=== PATIENT | male | born 1940 | race Two or more races ===

== ENCOUNTER 2021-09-28 09:59 | Inpatient (IN) | payer MEDICARE, OTHER ==
[~2021-09-28] VITALS: Ht 182.9 cm; Wt 119.3 kg
--- NOTE | 2021-09-28 09:59 | NUR ---
BIBRA 78 FROM HOME C/O GEN WEAKNESS STARTED YESTERDAY BG 128. PER EMS VIRK WAS REPLACED YESTERDAY NO URINE OUTPUT. TO ER BED 8, HOOKED TO MONITOR, CHANGED TO HOSP GOWN, WARM BLANKET PROVIDED. PATIENT AAO x 2. BREATHING EVEN AND UNLABORED. DR HOLLIS AT BEDSIDE
--- NOTE | 2021-09-28 10:21 | NUR ---
WHEELED OUT VIA RNEY FOR CT SCAN
[2021-09-28] MEDS ORDERED: IV NS 0.9% 500 ML BAG IV ONE (10:30)
[2021-09-28] MEDS ORDERED: CEFTRIAXONE 1GM BAG (ER ONLY) 1 GM/50 ML PIGGYBACK IV ONE (10:30)
--- NOTE | 2021-09-28 10:32 | NUR ---
INSERTED VIRK CATHETER, NO OUTPUT. MADE AWARE
[2021-09-28] MEDS ORDERED: CEFTRIAXONE 1GM BAG (ER ONLY) 50 ML IV ONE (10:35)
[2021-09-28 11:00] LABS: BASOPHILS # (AUTO) 0.1 K/uL (0.0-0.2); BASOPHILS % (AUTO) 0.6 % (0.0-2.0); EOSINOPHILS % (AUTO) 0.9 % (0.0-6.0); HEMATOCRIT 28 % (39-51); HEMOGLOBIN 9.1 g/dL (13.5-17.5); LYMPHOCYTES # (AUTO) 1.8 K/uL (0.8-4.8); LYMPHOCYTES % (AUTO) 20.4 % (20.0-44.0); MEAN CORPUSCULAR HGB CONC 32 g/dl (31.0-36.0); MEAN CORPUSCULAR VOLUME 91 fL (80-96); MONOCYTES # (AUTO) 0.6 K/uL (0.1-1.30); MONOCYTES % (AUTO) 6.7 % (2.0-12.0); NEUTROPHILS # (AUTO) 6.4 K/uL (1.8-8.9); NEUTROPHILS % (AUTO) 71.4 % (43.0-81.0); PLATELET COUNT (AUTO) 222 K/uL (150-450); RED BLOOD CELL COUNT(AUTO) 3.12 MIL/uL (4.5-6.0)
[2021-09-28] MEDS ORDERED: IV NS 0.9% 1,000 ML IV ONE (11:00)
[2021-09-28 11:29] LABS: ALKALINE PHOSPHATASE 48 U/L (46-116); ASPARTATE AMINOTRANSFERASE 16 U/L (15-37); BILIRUBIN,DIRECT 0.1 mg/dL (0.0-0.2); BILIRUBIN,TOTAL 0.5 mg/dL (0.2-1.0); CALCIUM, SERUM 8.9 mg/dL (8.5-10.1); CARBON DIOXIDE 21 mmol/L (21-32); CHLORIDE 91 mmol/L (98-107); CREATININE 3.7 mg/dL (0.6-1.3); GLUCOSE 97 mg/dL (74-106); TOTAL PROTEIN, SERUM 5.4 g/dL (6.4-8.2); UREA NITROGEN, BLOOD 43 mg/dL (7-18)
--- NOTE | 2021-09-28 11:33 | NUR ---
[facility] [phone] PRIMARY MD: KANDI SZYMANSKI [phone] ONCOLOGIST: DR KRISHNA [phone]
[2021-09-28 11:50] LABS: ALANINE AMINOTRANSFERASE 7 U/L (12-78)
[2021-09-28 11:54] LABS: SODIUM SERUM 120 mmol/L (136-145)
[2021-09-28] MEDS ORDERED: DOXYCYCLINE 100 MG in IV D5W 100 ML IV ONE (12:00)
[2021-09-28 12:31] LABS: THYROID STIMULATING HORMONE 8.392 uIU/mL (0.358-3.74)
--- NOTE | 2021-09-28 14:30 | NUR ---
RAPID COVID DONE AND SENT TO LAB
--- NOTE | 2021-09-28 14:36 | NUR ---
URINE SAMPLE COLLECTED FROM VIRK CATHETER. SENT TO LAB.
[2021-09-28] MEDS ORDERED: ZOLPIDEM TARTRATE 5 MG TABLET PO PRN (15:30)
[2021-09-28] MEDS ORDERED: Z GUARD REMEDY 4 OZ OINT TP PRN (15:30)
[2021-09-28] MEDS ORDERED: HYDROCODONE/APAP 5/325MG TABLET PO PRN (15:30)
[2021-09-28] MEDS ORDERED: MAG HYDROX/AL HYDROX/SIMETH 30 ML UDC PO PRN (15:30)
[2021-09-28] MEDS ORDERED: MAGNESIUM HYDROXIDE 30 ML UDC PO PRN (15:30)
[2021-09-28 15:56] LABS: COLOR,URINE RED (YELLOW); RBC,URINE TOO NUMEROUS TO COUN /HPF (0-2)
[2021-09-28 15:57] LABS: BACTERIA,URINE 2+ /HPF (None Seen); SQUAMOUS EPITHELIAL CELL,UR 0-2 /HPF (None Seen); WBC,URINE 21-50 /HPF (0-3)
--- NOTE | 2021-09-28 16:00 | NUR ---
SHERWIN PARKS AT BEDSIDE
--- NOTE | 2021-09-28 18:54 | NUR ---
FOLLOWED UP TELE BED FROM WATER METER MECHANIC.
--- NOTE | 2021-09-28 19:00 | NUR ---
BED GIVEN 116-1
--- NOTE | 2021-09-28 19:05 | NUR ---
CALLED FOR REPORT. NURSE NOT AVAILABLE
--- NOTE | 2021-09-28 19:27 | NUR ---
CALLED FOR REPORT. NURSE NOT AVAILABLE
--- NOTE | 2021-09-28 19:36 | NUR ---
REPORT GIVEN TO LENA HICKMAN FOR SHELLEY
--- NOTE | 2021-09-28 20:13 | NUR ---
REPORT GIVEN TO CATIE NAIR RN FOR SHELLEY
[2021-09-28] MEDS ORDERED: HYDR-4077 PO ×2 (20:15→20:30)
[2021-09-28] MEDS ORDERED: CARV12.52 PO (20:30)
[2021-09-28] MEDS ORDERED: GABA-532 PO (20:30)
[2021-09-28] MEDS ORDERED: ALLO300T2 PO (20:30)
[2021-09-28] MEDS ORDERED: LEVO75TA7 PO (20:30)
[2021-09-28 21:00] VITALS: BP 102/54
[2021-09-28] MEDS ORDERED: CEFEPIME 2 GM in IV D5W 100 ML IV ONE (21:00)
--- NOTE | 2021-09-28 21:02 | NUR ---
PT TRANSFERRED TO [place] VIA ACLS PROTOCOL. VSS. ALL BELONGINGS WITH PT.
[2021-09-28] MEDS ORDERED: VANCOMYCIN 1 GM VIAL ONE (21:40)
[2021-09-28] MEDS ORDERED: VANCOMYCIN 2 GM in IV D5W 500 ML IV ONE (22:00)
[2021-09-28] MEDS ORDERED: CEFEPIME 1 GM VIAL ONE (23:27)
[2021-09-29] VITALS (7 sets, daily range): BP systolic 89–122; BP diastolic 44–66
--- NOTE | 2021-09-29 06:30 | NUR ---
CONSUMER ELECTRONICS MERCHANDISER NOTES AWAKE & RESPONSIVE. NOT IN ANY DISTRESS. NO SOB NOTED. DENIES ANY PAIN OR DISCOMFORT AT THIS TIME. ON TELE SR @ 67 WITH IV PATENT & INTACT. AM CARE DONE. MONITORED ACCORDINGLY. CALL LIGHT WITHIN REACH. BED IN LOWEST POSITION. SR UP X 3 WITH BED ALARM ON FOR SAFETY. WILL ENDORSE TO NEXT SHIFT.
[2021-09-29 07:10] LABS: BASOPHILS # (AUTO) 0.1 K/uL (0.0-0.2); BASOPHILS % (AUTO) 0.7 % (0.0-2.0); EOSINOPHILS % (AUTO) 1.7 % (0.0-6.0); HEMATOCRIT 27 % (39-51); LYMPHOCYTES # (AUTO) 1.6 K/uL (0.8-4.8); LYMPHOCYTES % (AUTO) 16.8 % (20.0-44.0); MEAN CORPUSCULAR HGB CONC 33 g/dl (31.0-36.0); MEAN CORPUSCULAR VOLUME 88 fL (80-96); MONOCYTES # (AUTO) 0.6 K/uL (0.1-1.30); MONOCYTES % (AUTO) 6.6 % (2.0-12.0); NEUTROPHILS # (AUTO) 7.1 K/uL (1.8-8.9); NEUTROPHILS % (AUTO) 74.2 % (43.0-81.0); PLATELET COUNT (AUTO) 257 K/uL (150-450); RED BLOOD CELL COUNT(AUTO) 3.09 MIL/uL (4.5-6.0); WHITE BLOOD COUNT (AUTO) 9.6 K/uL (4.3-11.0)
[2021-09-29 07:26] LABS: CALCIUM, SERUM 8.5 mg/dL (8.5-10.1); CARBON DIOXIDE 21 mmol/L (21-32); CHLORIDE 92 mmol/L (98-107); CREATININE 4.4 mg/dL (0.6-1.3); GLUCOSE 105 mg/dL (74-106); MAGNESIUM 2.2 mg/dL (1.8-2.4); PHOSPHORUS 5.9 mg/dL (2.5-4.9); SODIUM SERUM 121 mmol/L (136-145); UREA NITROGEN, BLOOD 42 mg/dL (7-18)
--- NOTE | 2021-09-29 07:30 | NUR ---
COMMUNICATION PROFESSOR OPENING NOTES RECEIVED PATIENT AWAKE & RESPONSIVE. NOT IN ANY DISTRESS. NO SOB NOTED. DENIES ANY PAIN OR DISCOMFORT. PATIENT IS [place] SPEAKING, CAN SPEAK MINIMAL MALAY, IS ABLE TO VERBALIZE NEEDS. IV ACCESS NOTED ON RIGHT HAND AND RIGHT AC BOTH 20G.SAFETY MEASURES IN PLACE. CALL LIGHT WITHIN REACH, BED ALARM ACTIVATED BED IN LOWEST POSITION. SIDE RAILS UP X 2.
[2021-09-29] MEDS: PANTOPRAZOLE 40 MG TABLET.DR PO SCH (08:26)
[2021-09-29] MEDS: IV NS 0.9% 1,000 ML IV PRN (15:33)
--- NOTE | 2021-09-29 19:09 | NUR ---
SLURRY TANK TENDER CLOSING NOTES PATIENT AWAKE & RESPONSIVE. NOT IN ANY DISTRESS. NO SOB NOTED. DENIES ANY PAIN OR DISCOMFORT. PATIENT IS VINCENTIAN SPEAKING, CAN SPEAK MINIMAL [place], IS ABLE TO VERBALIZE NEEDS. IV ACCESS NOTED ON RIGHT HAND AND RIGHT AC BOTH 20G.SAFETY MEASURES IN PLACE. CALL LIGHT WITHIN REACH, BED ALARM ACTIVATED BED IN LOWEST POSITION. SIDE RAILS UP X 2.
--- NOTE | 2021-09-29 19:35 | NUR ---
RN NOTE PT RECEIVED IN BED. PT IS ALERT AND ORIENTED X1-2. CURRENTLY ON 2L OF O2 VIA NC SHOWING NO S/SX OF RESP DISTRESS. BREATHING EVEN AND UNLABORED. ON MANUFACTURING PROJECT MANAGER SHOWING NSR. IV ACCESS NOTED ON RIGHT UPPER ARM PICCLINE, LINE FLUSHED, PATENT, AND INTACT WITH NO SIGNS OF INFILTRATION. 0.9% NS RUNNING AT 75 CC/HR. VIRK CATHETER NOTED DRAINING BLOODY URINE. ALL SAFETY MEASURES IMPLEMENTED. CALL LIGHT WITHIN REACH. BED LOCKED AND IN LOWEST POSITION. HOB ELEVATED. SIDE RAILS UP. WILL CONTINUE TO MONITOR AND ASSESS FOR ANY CHANGES DURING SHIFT.
--- NOTE | 2021-09-29 20:00 | NUR ---
RN NOTE PER FAMILY, PT IS ON G-TUBE FEEDING SPECIFICALLY BEING ON NEPRO. ALSO, PER FAMILY, SHE IS ABLE TO INTAKE VERY SMALL AMOUNTS OF PUREED FOOD. Addendum: 09/30/21 at 0138 by MAURICIO FINNEY RN WRONG ENTRY
[2021-09-29] MEDS: ONDANSETRON HCL/PF 4 MG/2 ML VIAL IVP PRN ×2 (20:17→20:59)
[2021-09-29] MEDS: CEFEPIME 2 GM in IV D5W 100 ML IV SCH (21:56)
[2021-09-30] VITALS: BP 104/53
[2021-09-30 00:01] LABS: CREATININE, URINE 54.3 MG/DL (30.0-125.0)
[2021-09-30 04:00] VITALS: BP 109/48
[2021-09-30] MEDS: IV NS 0.9% 1,000 ML IV PRN (05:53)
--- NOTE | 2021-09-30 06:55 | NUR ---
RN NOTE NO CHANGES IN PT CONDITION DURING SHIFT. CURRENTLY ON 2L OF O2 VIA NC SHOWING NO S/SX OF RESP DISTRESS. BREATHING EVEN AND UNLABORED. ON CODING EDUCATOR SHOWING NSR. IV ACCESS NOTED ON RIGHT UPPER ARM PICCLINE, LINE FLUSHED, PATENT, AND INTACT WITH NO SIGNS OF INFILTRATION. 0.9% NS RUNNING AT 75 CC/HR. ALL DUE MEDS GIVEN ORDERED. PT KEPT CLEAN AND COMFORTABLE. ALL SAFETY MEASURES IMPLEMENTED. CALL LIGHT WITHIN REACH. BED LOCKED AND IN LOWEST POSITION. HOB ELEVATED. SIDE RAILS UP. WILL ENDORSE TO MORNING SHIFT RN FOR SHELLEY.
[2021-09-30 07:06] LABS: BASOPHILS % (AUTO) 0.5 % (0.0-2.0); EOSINOPHILS % (AUTO) 1.7 % (0.0-6.0); HEMATOCRIT 25 % (39-51); HEMOGLOBIN 8.2 g/dL (13.5-17.5); LYMPHOCYTES # (AUTO) 1.6 K/uL (0.8-4.8); LYMPHOCYTES % (AUTO) 20.6 % (20.0-44.0); MEAN CORPUSCULAR HGB CONC 33 g/dl (31.0-36.0); MEAN CORPUSCULAR VOLUME 89 fL (80-96); MONOCYTES # (AUTO) 0.6 K/uL (0.1-1.30); MONOCYTES % (AUTO) 7.9 % (2.0-12.0); NEUTROPHILS # (AUTO) 5.4 K/uL (1.8-8.9); NEUTROPHILS % (AUTO) 69.3 % (43.0-81.0); PLATELET COUNT (AUTO) 250 K/uL (150-450); RED BLOOD CELL COUNT(AUTO) 2.82 MIL/uL (4.5-6.0); WHITE BLOOD COUNT (AUTO) 7.7 K/uL (4.3-11.0)
--- NOTE | 2021-09-30 07:50 | NUR ---
RN OPENING NOTES Patient seen comfortably lying in bed, no apparent distress noted, no shortness of breath, breathing even and unlabored, no grimacing. Safety precautions in place, brakes locked, side rails up X 2, call light left within reach, will monitor closely for any changes.
[2021-09-30 08:00] VITALS: BP 112/56
[2021-09-30] MEDS: PANTOPRAZOLE 40 MG TABLET.DR PO SCH (08:23)
[2021-09-30 08:52] LABS: ALANINE AMINOTRANSFERASE 9 U/L (12-78); ALBUMIN 1.8 g/dL (3.4-5.0); ALKALINE PHOSPHATASE 45 U/L (46-116); ASPARTATE AMINOTRANSFERASE 14 U/L (15-37); BILIRUBIN,TOTAL 0.3 mg/dL (0.2-1.0); CALCIUM, SERUM 8.4 mg/dL (8.5-10.1); CARBON DIOXIDE 19 mmol/L (21-32); CHLORIDE 92 mmol/L (98-107); CREATININE 4.8 mg/dL (0.6-1.3); GLUCOSE 95 mg/dL (74-106); MAGNESIUM 1.9 mg/dL (1.8-2.4); PHOSPHORUS 5.9 mg/dL (2.5-4.9); POTASSIUM 5.2 mmol/L (3.5-5.1); SODIUM SERUM 123 mmol/L (136-145); TOTAL PROTEIN, SERUM 5.1 g/dL (6.4-8.2); UREA NITROGEN, BLOOD 48 mg/dL (7-18)
--- NOTE | 2021-09-30 09:36 | NUR ---
Patient's Potassium level relayed to hospitalist and hospitalist acknowledged, patient seen comfortably lying in bed, no apparent distress noted, no palpitation, no dizziness, no chest pain, will monitor closely for any changes.
--- NOTE | 2021-09-30 10:44 | NUR ---
WOUND CARE CONSULT: PT PRESENTS WITH INTACT DEEP TISSUE INJURY TO SACRUM, PRESENT ON ADMISSION. PT IS ON FIRST STEP [facility]. ALL SKIN PROTECTION MEASURES IN PLACE AND DISCUSSED WITH NURSING STAFF. IN AGREEMENT WITH PLAN OF CARE. Addendum: 09/30/21 at 1047 by EFRAIN GALINDO WNDNU Amended: Links added.
--- NOTE | 2021-09-30 11:29 | NUR ---
Received a call from [facility], regarding patient's blood culture. Patient seen comfortably lying in bed, no apparent distress noted at this time, afebrile. Wilfrido Mercedes NP made aware of blood culture results and acknowledged, will monitor closely for any changes.
[2021-09-30 12:00] VITALS: BP 95/40
--- NOTE | 2021-09-30 12:35 | NUR ---
Seen by hospitalist with new order for ultrasound guided thoracentesis, patient seen comfortably lying in bed, no apparent distress, no shortness of breath, afebrile. Consent obtained from daughter Shana Cedeno (phone [phone]), health teaching provided, risks and benefits explained, daughter verbalized understanding and gratitude. Consent witnessed and signed by another RN and filed in front of the chart.
--- NOTE | 2021-09-30 14:40 | NUR ---
Patient S/P ultrasound guided thoracentesis at bedside with 1560ml, patient tolerated procedure well, site covered with small sterile dry dressing, no bleeding noted at this time, no unusual odor, no shortness of breath, respirations even and unlabored, no apparent distress noted, call light left within reach, will monitor closely for any changes.
--- NOTE | 2021-09-30 15:55 | NUR ---
Chest xray results S/P thoracentesis relayed to hospitalist, awaiting for any orders, patient seen comfortably lying in bed, no apparent distress noted, no shortness of breath, respirations even and unlabored, afebrile, will monitor closely for any changes.
[2021-09-30 16:00] VITALS: BP 100/60
--- NOTE | 2021-09-30 16:44 | NUR ---
Kidney ultrasound results relayed to hospitalist, awaiting for any orders, patient seen comfortably lying in bed, no apparent distress noted, will monitor closely for any changes.
--- NOTE | 2021-09-30 18:44 | NUR ---
RN CLOSING NOTES Patient lying in bed, respirations even and unlabored, no shortness of breath, no apparent distress noted, denies any pain or discomfort no dizziness, no palpitation, no chest pain. All medications given per MD order, tolerating well. Patient S/P ultrasound guided thoracentesis, site covered with dry drressings, no bleeding, no unusual odor, no swelling noted on site. Patient is on IV fluids NS at 75ml/hr infusing well on his PICC line on his right upper arm, site remained patent and flushing well, no swelling, no redness at this time. Morfin catheter noted to have reddish output, no clots, and no unusual odor noted in urine, no grimacing when bladder palpated, bladder non distended during shift. Call light left within reach, kept clean and dry, all needs anticipated, safety precautions in place, frequent visual checks rendered, frequent repositioning done, brakes locked, side rails up X 2, will endorse to next shift for continuity of care.
--- NOTE | 2021-09-30 19:30 | NUR ---
RN NOTE PT RECEIVED IN BED. PT IS ALERT AND ORIENTED X1. CURRENTLY ON 2L OF O2 VIA NC SHOWING NO S/SX OF RESP DISTRESS. BREATHING EVEN AND UNLABORED. ON WAX PUMPER SHOWING NSR. IV ACCESS NOTED ON RIGHT UPPER ARM PICCLINE, LINE FLUSHED, PATENT, AND INTACT WITH NO SIGNS OF INFILTRATION. 0.9% NS RUNNING AT 75 CC/HR. VIRK CATHETER NOTED DRAINING BLOODY URINE. ALL SAFETY MEASURES IMPLEMENTED. CALL LIGHT WITHIN REACH. BED LOCKED AND IN LOWEST POSITION. HOB ELEVATED. SIDE RAILS UP. WILL CONTINUE TO MONITOR AND ASSESS FOR ANY CHANGES DURING SHIFT.
[2021-09-30 20:00] VITALS: BP 117/45
[2021-09-30] MEDS: MUPIROCIN OINT 2% 22 GM TUBE NS SCH ×2 (20:46→21:00)
[2021-09-30] MEDS: CEFEPIME 2 GM in IV D5W 100 ML IV SCH (20:46)
[2021-09-30] MEDS ORDERED: VANCOMYCIN 1 GM in IV D5W 250ml IV SCH (21:00)
--- NOTE | 2021-09-30 21:03 | NUR ---
RN NOTE DUPLICATE BACTROBAN ORDER. ALREADY ADMINISTERED.
--- NOTE | 2021-09-30 22:12 | NUR ---
RN NOTE WAITING FOR LAB TO PROCESS VANCO TROUGH BEFORE ADMINISTRATION OF DOSE. FOLLOWED UP TWICE ALREADY.
[2021-10-01] VITALS (7 sets, daily range): BP systolic 94–120; BP diastolic 32–52
--- NOTE | 2021-10-01 07:01 | NUR ---
RN NOTE NO CHANGES IN PT CONDITION DURING SHIFT. CURRENTLY ON 2L OF O2 VIA NC SHOWING NO S/SX OF RESP DISTRESS. BREATHING EVEN AND UNLABORED. ON WELDING MACHINE OPERATOR GAS SHOWING NSR. IV ACCESS NOTED ON RIGHT UPPER ARM PICCLINE, LINE FLUSHED, PATENT, AND INTACT WITH NO SIGNS OF INFILTRATION. 0.9% NS RUNNING AT 75 CC/HR. ALL DUE MEDS GIVEN ORDERED. PT KEPT CLEAN AND COMFORTABLE. ALL SAFETY MEASURES IMPLEMENTED. CALL LIGHT WITHIN REACH. BED LOCKED AND IN LOWEST POSITION. HOB ELEVATED. SIDE RAILS UP. WILL ENDORSE TO MORNING SHIFT RN FOR SHELLEY.
[2021-10-01 07:30] LABS: BASOPHILS % (AUTO) 0.7 % (0.0-2.0); EOSINOPHILS % (AUTO) 2.7 % (0.0-6.0); HEMATOCRIT 24 % (39-51); HEMOGLOBIN 7.8 g/dL (13.5-17.5); LYMPHOCYTES # (AUTO) 1.5 K/uL (0.8-4.8); MEAN CORPUSCULAR HGB CONC 33 g/dl (31.0-36.0); MEAN CORPUSCULAR VOLUME 88 fL (80-96); MONOCYTES # (AUTO) 0.4 K/uL (0.1-1.30); MONOCYTES % (AUTO) 7.6 % (2.0-12.0); NEUTROPHILS # (AUTO) 3.7 K/uL (1.8-8.9); PLATELET COUNT (AUTO) 236 K/uL (150-450); RED BLOOD CELL COUNT(AUTO) 2.69 MIL/uL (4.5-6.0); WHITE BLOOD COUNT (AUTO) 5.8 K/uL (4.3-11.0)
[2021-10-01] MEDS: PANTOPRAZOLE 40 MG TABLET.DR PO SCH (07:30)
[2021-10-01 07:40] LABS: CALCIUM, SERUM 8.2 mg/dL (8.5-10.1); CARBON DIOXIDE 18 mmol/L (21-32); CHLORIDE 93 mmol/L (98-107); CREATININE 5.1 mg/dL (0.6-1.3); GLUCOSE 104 mg/dL (74-106); POTASSIUM 5.1 mmol/L (3.5-5.1); SODIUM SERUM 122 mmol/L (136-145); UREA NITROGEN, BLOOD 49 mg/dL (7-18)
--- NOTE | 2021-10-01 07:47 | NUR ---
RN NOTE PT RECEIVED IN BED. PT IS A/O X1-2. CURRENTLY ON 2L OF O2 VIA NC SHOWING NO S/SX OF RESP DISTRESS. BREATHING EVEN AND UNLABORED. ON SHEET ROCK TAPER HELPER SHOWING NSR. IV ACCESS NOTED ON RIGHT UPPER ARM PICCLINE, LINE FLUSHED, PATENT, AND INTACT WITH NO SIGNS OF INFILTRATION. 0.9% NS RUNNING AT 75 CC/HR. VIRK CATHETER NOTED DRAINING BLOODY URINE. ALL SAFETY MEASURES IMPLEMENTED. CALL LIGHT WITHIN REACH. BED LOCKED AND IN LOWEST POSITION. HOB ELEVATED. SIDE RAILS UP. WILL CONTINUE TO MONITOR AND ASSESS FOR ANY CHANGES DURING SHIFT.
[2021-10-01] MEDS: MUPIROCIN OINT 2% 22 GM TUBE NS SCH ×3 (08:55→21:28)
[2021-10-01 10:05] LABS: ABG BASE EXCESS -9.2 mmol/L; ABG PCO2 36.3 mmHg (35.0-45.0); ABG PH 7.281 (7.350-7.450); ABG PO2 126.7 mmHg (75.0-100.0); COHb 0.3 % (0.5-1.5); MetHb 0.3 % (0.0-1.5); O2Hb 97.5 % (94.0-97.0); SITE, ABG Right Radial; VENT MODE, BG NASAL CANNULA
[2021-10-01] MEDS: IV NS 0.9% 1,000 ML IV PRN (11:22)
--- NOTE | 2021-10-01 16:52 | NUR ---
RN NOTES PATIENT REMAINS ALTERED MENTAL STATUS. MD AWARE. PO MEDS HELD FOR RISK OF ASPIRATION.
[2021-10-01] MEDS: CITRIC ACID/SODIUM CITRATE (BICITRA)15 ML UDC PO SCH ×2 (16:59→21:00)
[2021-10-01 17:03] LABS: ABG BASE EXCESS -8.3 mmol/L; ABG OXYGEN SATURATION 96.4 % (92.0-98.5); ABG PCO2 40.9 mmHg (35.0-45.0); ABG PH 7.263 (7.350-7.450); ABG PO2 91.8 mmHg (75.0-100.0); AaDO2 30.7 mmHg; COHb 0.3 % (0.5-1.5); MetHb 0.2 % (0.0-1.5); O2Hb 95.9 % (94.0-97.0); SITE, ABG Left Radial; VENT MODE, BG nasal cannula
[2021-10-01 18:00] LABS: BASOPHILS # (AUTO) 0.1 K/uL (0.0-0.2); BASOPHILS % (AUTO) 0.9 % (0.0-2.0); EOSINOPHILS % (AUTO) 2.4 % (0.0-6.0); HEMATOCRIT 25 % (39-51); HEMOGLOBIN 8.1 g/dL (13.5-17.5); LYMPHOCYTES # (AUTO) 1.6 K/uL (0.8-4.8); LYMPHOCYTES % (AUTO) 25.2 % (20.0-44.0); MEAN CORPUSCULAR HGB CONC 33 g/dl (31.0-36.0); MEAN CORPUSCULAR VOLUME 89 fL (80-96); MONOCYTES # (AUTO) 0.5 K/uL (0.1-1.30); MONOCYTES % (AUTO) 7.7 % (2.0-12.0); NEUTROPHILS % (AUTO) 63.8 % (43.0-81.0); PLATELET COUNT (AUTO) 253 K/uL (150-450); RED BLOOD CELL COUNT(AUTO) 2.81 MIL/uL (4.5-6.0); WHITE BLOOD COUNT (AUTO) 6.2 K/uL (4.3-11.0)
[2021-10-01] MEDS ORDERED: IV NS 0.9% 500 ML IV ONE (18:00)
--- NOTE | 2021-10-01 18:00 | NUR ---
RESTAURANT LINE SERVER NOTES 1705 - RAPID RESPONSE CALLED, PATIENT FOUND NON RESPONSIVE EVEN TO DEEP PAIN AND CHEST RUB. - BP 102/40 IL 80s RR 21 O2 SAT 96% TEMP 98.1 1711 - TEAM ARRIVED, GRANT DAILY, PRIMARY RN, HU ICU RESTAURANT LINE SERVER, PARTHA NAIR RESTAURANT LINE SERVER, JINA JAY COLLEAGUE RN, SAHARA ANTHONY RN MS SQL DBA, RESP THERAPISTS - [place] [place], [place]. - ABG DONE - METABOLIC ACIDOSIS UNCOMPENSATED PER RESP THERAPIST, BLOOD SUGAR 87 MG/DL 1711 - DR. MIRNA MEDRANO NOTIFIED. ORDERED TO DO [facility]. SCORE 35. 1750 - DR MIRNA MEDRANO ORDERED NS 500 ML BOLUS, AND BMP CBC. 1800 - END OF RAPID RESPONSE.
--- NOTE | 2021-10-01 18:04 | NUR ---
RN NOTES RAPID RESPONSE TEAM CALLED. PATIENT DIDN'T WAKE UP WITH PAINFUL STIMULI AND STERNAL RUB. PATIENT FINALLY WOKE UP AND GRIMACED WITH SUCTIONING BY RT. STROKE SCALE DONE WITH SCORE OF 35, MD MEDRANO ORDERED STAT 500CC BOLUS OF NORMAL SALINE, BMP AND CBC. WILL CONTINUE TO MONITOR PATIENT.
[2021-10-01 18:23] LABS: CALCIUM, SERUM 8.2 mg/dL (8.5-10.1); CARBON DIOXIDE 19 mmol/L (21-32); CREATININE 5.1 mg/dL (0.6-1.3); GLUCOSE 86 mg/dL (74-106); UREA NITROGEN, BLOOD 49 mg/dL (7-18)
--- NOTE | 2021-10-01 18:42 | NUR ---
RN CLOSING NOTES PATIENT REMAINS STABLE. VITAL SIGNS REMAINED STABLE AND ALL ACTIONS ORDERED BY DOCTOR AFTER RAPID RESPONSE ARE EXECUTED ORDERED. PATIENT IS STILL SLEEPING AND OCCASIONALLY MOUTHS WORDS. NORMAL SALINE STILL RUNNING AT 75CC/HR. ALL SAFETY MEASURES ARE IN PLACE. STILL AWAITING TRANSFER TO HIGHER LEVEL OF CARE. WILL ENDORSE PATIENT TO FORGING PRESS OPERATOR NURSE.
[2021-10-01 19:23] LABS: CHLORIDE 95 mmol/L (98-107); POTASSIUM 5.2 mmol/L (3.5-5.1); SODIUM SERUM 124 mmol/L (136-145)
--- NOTE | 2021-10-01 19:35 | NUR ---
RN NOTE PT RECEIVED IN BED. PT IS NOT ALERT/ORIENTED AND DIFFICULT TO AROUSE. PER ENDORSEMENT FROM DAY SHIFT, RAPID RESPONSE WAS ACTIVATED DUE TO WORSENING CONDITION AND DIFFICULTY TO AROUSE. MD AWARE. PT CURRENTLY ON 2L OF O2 VIA NC SHOWING NO S/SX OF RESP DISTRESS. BREATHING EVEN AND UNLABORED. ON ORACLE FUSION DEVELOPER SHOWING NSR. IV ACCESS NOTED ON RIGHT UPPER ARM PICCLINE, LINE FLUSHED, PATENT, AND INTACT WITH NO SIGNS OF INFILTRATION. ALL SAFETY MEASURES IMPLEMENTED. CALL LIGHT WITHIN REACH. BED LOCKED AND IN LOWEST POSITION. HOB ELEVATED. SIDE RAILS UP. WILL CONTINUE TO MONITOR AND ASSESS FOR ANY CHANGES DURING SHIFT.
--- NOTE | 2021-10-01 20:32 | NUR ---
RN NOTE SPOKE WITH DR. ANGEL REGARDING PT BEING TRANSFERRED TO [facility]. JEANNE SPOKE WITH FROM [facility] AND PER JEANNE, PT IS NOT STABLE TO BE TRANSFERRED TONIGHT DUE TO RAPID RESPONSE BEING INITIATED DURING DAYSHIFT. PER JEANNE, ENDORSE TO MORNING AND LET DR. PERKINS MAKE DECISION REGARDING TRANSFER OF PT.
--- NOTE | 2021-10-01 20:50 | NUR ---
RN NOTE SPOKE WITH PT SON NICHOLAS AND UPDATED HIM ON PATIENT CONDITION. ALSO, UPDATED HIM ON CURRENT TRANSFER SITUATION AND INFORMED HIM THAT SINCE HE IS NOT STABLE AND PER MD ORDERS, PT WILL STAY DURING EVENING AND DR. PERKINS WILL MAKE DECISION ON TRANSFER STATUS.
[2021-10-01] MEDS ORDERED: MUPIROCIN OINT 2% 22 GM TUBE NS SCH (21:00)
--- NOTE | 2021-10-01 21:22 | NUR ---
RN NOTE PT UNABLE TO TAKE ANY PO MEDICATIONS DUE TO RISK OF ASPIRATION, BEING LETHARGIC AND NOT ALERT/ORIENTED.
[2021-10-01] MEDS: CEFEPIME 2 GM in IV D5W 100 ML IV SCH (21:27)
[2021-10-02] VITALS (25 sets, daily range): BP systolic 71–140; BP diastolic 35–93
[2021-10-02] MEDS: IV NS 0.9% 1,000 ML IV PRN (05:48)
--- NOTE | 2021-10-02 06:37 | NUR ---
RN NOTE NO CHANGES IN PT CONDITION DURING SHIFT. PT IS NOT ALERT/ORIENTED. PT CURRENTLY ON 2L OF O2 VIA NC SHOWING NO S/SX OF RESP DISTRESS. BREATHING EVEN AND UNLABORED. ON WELT TREATER SHOWING NSR. IV ACCESS NOTED ON RIGHT UPPER ARM PICCLINE, LINE FLUSHED, PATENT, AND INTACT WITH NO SIGNS OF INFILTRATION. ALL SAFETY MEASURES IMPLEMENTED. CALL LIGHT WITHIN REACH. BED LOCKED AND IN LOWEST POSITION. HOB ELEVATED. SIDE RAILS UP. WILL ENDORSE TO MORNING SHIFT RN FOR SHELLEY.
[2021-10-02] MEDS: PANTOPRAZOLE 40 MG TABLET.DR PO SCH (07:30)
--- NOTE | 2021-10-02 07:46 | NUR ---
RN OPENING NOTE PT RECEIVED IN BED. PT IS NOT ALERT/ORIENTED AND DIFFICULT TO AROUSE. PER ENDORSEMENT FROM MANAGER PAYROLL, RAPID RESPONSE WAS ACTIVATED DUE TO WORSENING CONDITION AND DIFFICULTY TO AROUSE. MD AWARE. PT CURRENTLY ON 2L OF O2 VIA NC SHOWING NO S/SX OF RESP DISTRESS. BREATHING EVEN AND UNLABORED. ON MANAGER OFFICE SERVICES . IV ACCESS NOTED ON RIGHT UPPER ARM PICCLINE, LINE FLUSHED, PATENT, AND INTACT WITH NO SIGNS OF INFILTRATION. ALL SAFETY MEASURES IMPLEMENTED. CALL LIGHT WITHIN REACH. BED LOCKED AND IN LOWEST POSITION. HOB ELEVATED. SIDE RAILS UP.
[2021-10-02 08:15] LABS: CALCIUM, SERUM 8.3 mg/dL (8.5-10.1); CARBON DIOXIDE 18 mmol/L (21-32); CHLORIDE 96 mmol/L (98-107); CREATININE 5.1 mg/dL (0.6-1.3); GLUCOSE 89 mg/dL (74-106); POTASSIUM 5.1 mmol/L (3.5-5.1); SODIUM SERUM 125 mmol/L (136-145); UREA NITROGEN, BLOOD 51 mg/dL (7-18)
[2021-10-02] MEDS: CITRIC ACID/SODIUM CITRATE (BICITRA)15 ML UDC PO SCH ×4 (09:00→21:00)
[2021-10-02] MEDS: MUPIROCIN OINT 2% 22 GM TUBE NS SCH ×2 (09:21→22:13)
[2021-10-02 09:40] LABS: ABG BASE EXCESS -11.2 mmol/L; ABG OXYGEN SATURATION 98.5 % (92.0-98.5); ABG PCO2 41.5 mmHg (35.0-45.0); ABG PH 7.205 (7.350-7.450); ABG PO2 155.4 mmHg (75.0-100.0); AaDO2 82.1 mmHg; COHb 0.3 % (0.5-1.5); MetHb 0.2 % (0.0-1.5); SITE, ABG Right Radial
--- NOTE | 2021-10-02 10:14 | NUR ---
RT POST ABG RESULTS SHOWN TO DR CEVALLOS. PLACED PT. ON BIPAP PER MD ORDER. 10/11 40% RR20. GIOVANNY HICKMAN NOTIFIED AND AWARE OF CHANGES. Addendum: 10/02/21 at 1223 by Augustine Caballero RT Amended: Links added.
--- NOTE | 2021-10-02 10:30 | NUR ---
RN NOTE PT RECEIVED FROM [id number]. REPORT RECEIVED FROM VICK SAENZ. PT IS ON BIPAP AT THIS TIME. WILL CONTINUE TO MONITOR.
[2021-10-02 11:31] LABS: THYROID STIMULATING HORMONE 1.539 uIU/mL (0.358-3.74)
[2021-10-02 12:46] LABS: ABG BASE EXCESS -11.4 mmol/L; ABG OXYGEN SATURATION 98.5 % (92.0-98.5); ABG PCO2 36.8 mmHg (35.0-45.0); ABG PH 7.234 (7.350-7.450); ABG PO2 149.9 mmHg (75.0-100.0); COHb 0.3 % (0.5-1.5); MetHb 0.2 % (0.0-1.5); SITE, ABG Right Radial; VENT MODE, BG ST 15/5 40%
[2021-10-02] MEDS ORDERED: HYDROCODONE/APAP 5/325MG TABLET PO PRN (13:00)
--- NOTE | 2021-10-02 13:46 | NUR ---
RN NOTE PT IS A/OX1 CONFUSED. WILL HOLD PO MEDS AT THIS TIME.
--- NOTE | 2021-10-02 14:25 | NUR ---
RN NOTE: VRE RECEIVED PHONE CALL FROM MAHSA THOMPSON FROM [facility] STATING PT POSITIVE FOR VRE
[2021-10-02] MEDS: ALBUMIN 25% 25 GM in PREMIX 1 EA IV PRN (16:47)
--- NOTE | 2021-10-02 18:48 | NUR ---
RN NOTE PT IS A/OX1 CONFUSED. WILL HOLD PO MEDS AT THIS TIME.
[2021-10-02] MEDS ORDERED: NOREPINEPHRINE 8 MG in IV NS 0.9% 242 ML IV PRN (19:00)
--- NOTE | 2021-10-02 19:26 | NUR ---
RN CLOSING NOTE PT IS IN BED WITH BEAR HUGGER WITH HOB AT 25 DEGREES DUE TO LOW BP S/P HD +600ML. PT HAS BILATERAL SOFT WRIST RESTRAINTS. PT IS ON 2L NC SAT 100%. PT IS A/OX1. FC IS IN PLACE DRAINING URINE TO GRAVITY -200ML. R UA PICC SINGLE LUMEN INFUSING WITH NS @75ML/HR AND R IJ HD CATH. BED IS LOCKED IN LOWEST POSITION X2 BEDRAILS UP ALL HOSPITAL SAFETY PROTOCOLS ARE IN PLACE. WILL ENDORSE TO AUTO AIR CONDITIONING INSTALLER NURSE FOR SHELLEY.
--- NOTE | 2021-10-02 19:33 | NUR ---
EXECUTIVE STAFF ASSISTANT. INITIAL ASSESSMENT. RECEIVED THE PT REST IN BED. PT IS DOES NOT FOLLOW COMMANDS. AT THIS TIME OBTUNDED. HOB ELEAVTED. OXYGEN 3L VIA NASAL CANNULA . SAST 98%. NO ACUTE DISTRESS NOTED. CONSULTANT RN SHOWING NSR. HOB ELEAVTED. COLUMBA HUGGER ON. FC PATENT. HEMATURIA NOTED. SHELDON SOFT WRIST RESTRAINT CHECKED AND RELEASED. NO INJURY OR REDNESS NOTED. HD CATH RT IJ. LOW BLOOD PRESSURE. LEVOPHED WILL STARTE. NOW. IVF NS 75 ML/H. WILL CONTINUE TO MONITOR VITALS.
[2021-10-02] MEDS: CEFEPIME 2 GM in IV D5W 100 ML IV SCH (20:39)
[2021-10-02] MEDS ORDERED: LINEZOLID RTU BAG 600 MG in PREMIX 1 EA IV SCH (21:00)
[2021-10-02] MEDS ORDERED: VANCOMYCIN 1 GM in IV D5W 250 ML IV SCH (21:00)
--- NOTE | 2021-10-02 21:05 | NUR ---
apiculture teacher. blood pressure is 86/45. levophed started per md ordered.
[2021-10-02] MEDS: LINEZOLID RTU BAG 600 MG in PREMIX 1 EA IV SCH (22:04)
[2021-10-02] MEDS ORDERED: MUPIROCIN OINT 2% 22 GM TUBE ONE (22:11)
[2021-10-03] VITALS (88 sets, daily range): BP systolic 73–143; BP diastolic 16–100
[2021-10-03] MEDS: IV NS 0.9% 1,000 ML IV PRN ×2 (02:51→18:59)
[2021-10-03 04:13] LABS: BASOPHILS # (AUTO) 0.1 K/uL (0.0-0.2); BASOPHILS % (AUTO) 0.8 % (0.0-2.0); EOSINOPHILS % (AUTO) 2.7 % (0.0-6.0); HEMATOCRIT 26 % (39-51); HEMOGLOBIN 8.4 g/dL (13.5-17.5); LYMPHOCYTES # (AUTO) 1.3 K/uL (0.8-4.8); LYMPHOCYTES % (AUTO) 18.6 % (20.0-44.0); MEAN CORPUSCULAR HGB CONC 32 g/dl (31.0-36.0); MEAN CORPUSCULAR VOLUME 89 fL (80-96); MONOCYTES # (AUTO) 0.4 K/uL (0.1-1.30); MONOCYTES % (AUTO) 6.7 % (2.0-12.0); NEUTROPHILS # (AUTO) 4.8 K/uL (1.8-8.9); NEUTROPHILS % (AUTO) 71.2 % (43.0-81.0); PLATELET COUNT (AUTO) 261 K/uL (150-450); RED BLOOD CELL COUNT(AUTO) 2.95 MIL/uL (4.5-6.0); WHITE BLOOD COUNT (AUTO) 6.7 K/uL (4.3-11.0)
[2021-10-03 04:42] LABS: CALCIUM, SERUM 8.6 mg/dL (8.5-10.1); CARBON DIOXIDE 20 mmol/L (21-32); CHLORIDE 98 mmol/L (98-107); CREATININE 3.8 mg/dL (0.6-1.3); GLUCOSE 108 mg/dL (74-106); PHOSPHORUS 4.6 mg/dL (2.5-4.9); POTASSIUM 4.4 mmol/L (3.5-5.1); SODIUM SERUM 130 mmol/L (136-145); UREA NITROGEN, BLOOD 38 mg/dL (7-18)
--- NOTE | 2021-10-03 06:08 | NUR ---
horticulture/floriculture teacher. am care given. remaining same oxygen tolerated well. sat 98%. no acute distress noted.color television console monitor showing nsr. remaining same ivf ns 75 ml/h. hob elevated.fc patent.urinr draining.hematuria present, will continue to monitor vitals
[2021-10-03] MEDS: PANTOPRAZOLE 40 MG TABLET.DR PO SCH (07:30)
--- NOTE | 2021-10-03 07:30 | NUR ---
OPENING NOTE: REPORT RECEIVED FROM JESSY HICKMAN. PT ON NASAL CANNULA, RESPONSIVE TO PAIN ONLY, NO EYE OPENING. PT ON LEVOPHED GTT PER MD ORDERS. FIRST HD YESTERDAY PER REPORT. PT CHECKED ON HOURLY AND PRN BY NURSING STAFF.
[2021-10-03] MEDS: LEVOTHYROXINE SODIUM 75 MCG TABLET PO SCH (08:18)
[2021-10-03] MEDS: CITRIC ACID/SODIUM CITRATE (BICITRA)15 ML UDC PO SCH ×4 (08:18→21:00)
--- NOTE | 2021-10-03 08:37 | NUR ---
PRELIMINARY BLOOD CULTURE RESULTS FROM CULTURES DRAWN ON 10/01/21 CAME BACK GRAM POSITIVE COCCI IN CLUSTERS. PREVIOUS CULTURES DRAWN ON 09/28/21 HAD PREVIOUSLY COME BACK GRAM POSITIVE COCCI. ID ALREADY AWARE.
--- NOTE | 2021-10-03 09:00 | NUR ---
PER HEALTH INFORMATION MANAGERS, DIALYSIS WILL START WITHIN A FEW HOURS AND TO HOLD MEDS UNTIL AFTER DIALYSIS.
[2021-10-03] MEDS: MUPIROCIN OINT 2% 22 GM TUBE NS SCH ×2 (09:38→20:51)
[2021-10-03] MEDS: LINEZOLID RTU BAG 600 MG in PREMIX 1 EA IV SCH ×2 (14:41→21:24)
[2021-10-03 15:06] LABS: ABG BASE EXCESS -6.4 mmol/L; ABG OXYGEN SATURATION 97.1 % (92.0-98.5); ABG PCO2 38.9 mmHg (35.0-45.0); ABG PH 7.313 (7.350-7.450); ABG PO2 97.6 mmHg (75.0-100.0); AaDO2 56.1 mmHg; COHb 0.3 % (0.5-1.5); MetHb 0.2 % (0.0-1.5); O2Hb 96.6 % (94.0-97.0); SITE, ABG Right Radial; VENT MODE, BG NASAL CANNULA
--- NOTE | 2021-10-03 19:24 | NUR ---
END OF SHIFT NOTE: NO SIGNIFICANT EVENTS THIS SHIFT. PT HAD DIALYSIS, 1L OFF. PT WITHDRAWALS TO PAIN AND MOANS, SQUEEZES HANDS, BUT NOT TO COMMANDS, NO EYE OPENING. SMALL AMOUNT OF HEMATURIA NOTED AT END OF SHIFT IN VIRK CATHETER. PT CHECKED ON HOURLY AND PRN BY NURSING STAFF.
--- NOTE | 2021-10-03 19:45 | NUR ---
RN NOTE RECEIVED PT RESPONDS TO PAIN BY MOANING, NO EYE OPENING. PT ON 3L NC SATING 98%. SR ON TELE MONITOR. RECEIVED ON LEVO AT 0.01MCG/KG/MIN, NS AT 75ML/HR, ABNER ML PATENT AND INTACT. RIJ HD CATH INTACT. WITH VIRK, NOTED HEMATURIA ON TIP OF THE CATHETER. WILL CONTINUE TO MONITOR.
--- NOTE | 2021-10-03 20:00 | NUR ---
PT ON 3L NC NO SOB. O2 SAT 98%.
[2021-10-03] MEDS: CEFEPIME 2 GM in IV D5W 100 ML IV SCH (20:44)
--- NOTE | 2021-10-03 22:00 | NUR ---
RN NOTE STOPPED LEVOPHED AT 1999. BP STABLE, SBP>90. WILL CONTINUE TO MONITOR.
[2021-10-04] VITALS (55 sets, daily range): BP systolic 89–129; BP diastolic 36–66
[2021-10-04 04:18] LABS: BASOPHILS % (AUTO) 0.9 % (0.0-2.0); EOSINOPHILS % (AUTO) 2.7 % (0.0-6.0); HEMATOCRIT 25 % (39-51); HEMOGLOBIN 8.1 g/dL (13.5-17.5); LYMPHOCYTES # (AUTO) 1.3 K/uL (0.8-4.8); LYMPHOCYTES % (AUTO) 22.4 % (20.0-44.0); MEAN CORPUSCULAR HGB CONC 33 g/dl (31.0-36.0); MEAN CORPUSCULAR VOLUME 89 fL (80-96); MONOCYTES # (AUTO) 0.5 K/uL (0.1-1.30); MONOCYTES % (AUTO) 9.6 % (2.0-12.0); NEUTROPHILS # (AUTO) 3.6 K/uL (1.8-8.9); NEUTROPHILS % (AUTO) 64.4 % (43.0-81.0); PLATELET COUNT (AUTO) 221 K/uL (150-450); WHITE BLOOD COUNT (AUTO) 5.6 K/uL (4.3-11.0)
[2021-10-04 04:30] LABS: CARBON DIOXIDE 22 mmol/L (21-32); CHLORIDE 99 mmol/L (98-107); CREATININE 2.7 mg/dL (0.6-1.3); GLUCOSE 109 mg/dL (74-106); MAGNESIUM 1.7 mg/dL (1.8-2.4); PHOSPHORUS 3.4 mg/dL (2.5-4.9); POTASSIUM 3.8 mmol/L (3.5-5.1); SODIUM SERUM 132 mmol/L (136-145); UREA NITROGEN, BLOOD 24 mg/dL (7-18)
--- NOTE | 2021-10-04 07:10 | NUR ---
RN NOTE NO SIGNIFICANT CHANGES NOTED, PT RESPONDS TO PAIN, BY MOANING. EPISODES OF OPENING EYES. CONTINUE ON 3L O2. NOT IN ANY DISTRESS, SATING 99%. PICC LINE ON ABNER REMAIN INTACT, NS RUNNING AT 75ML/HR, INFUSING WELL. NO SIGNS OF INFILTRATION NOTED. RELEASED FROM RESTRAINTS. STILL NOTED WITH HEMATURIA FROM VIRK CATH, WITH 160ML OUTPUT. TURNED AND REPOSITIONED. ENDORSED TO NEXT SHIFT NURSE FOR SHELLEY
[2021-10-04] MEDS: PANTOPRAZOLE 40 MG TABLET.DR PO SCH (07:30)
--- NOTE | 2021-10-04 07:30 | NUR ---
OPENING NOTE: REPORT RECEIVED FROM LOREN HICKMAN. ALL ORDERS AND MEDS REVIEWED IN REPORT. PER REPORT PT APPEARS TO BE SLIGHTLY MORE RESPONSIVE THAN LAST NIGHT. HD ORDERED AGAIN TODAY. PT REMAINS NPO, CONTINUES TO BE TOO LETHARGIC TO EAT OR TAKE PILLS. PT CHECKED ON HOURLY AND PRN BY NURSING STAFF.
[2021-10-04] MEDS: LEVOTHYROXINE SODIUM 75 MCG TABLET PO SCH (08:19)
[2021-10-04] MEDS: CITRIC ACID/SODIUM CITRATE (BICITRA)15 ML UDC PO SCH ×4 (08:19→21:00)
[2021-10-04 08:54] LABS: ABG BASE EXCESS -5.7 mmol/L; ABG OXYGEN SATURATION 97.5 % (92.0-98.5); ABG PH 7.324 (7.350-7.450); AaDO2 66.1 mmHg; COHb 0.1 % (0.5-1.5); MetHb 0.3 % (0.0-1.5); O2Hb 97.1 % (94.0-97.0); SITE, ABG Right Radial; VENT MODE, BG 2.5L NC
--- NOTE | 2021-10-04 09:00 | NUR ---
PER CHECKING CLERK, HD WILL BE WITHIN THE NEXT FEW HOURS, AM MEDS UNTIL AFTER DIALYSIS
[2021-10-04] MEDS: MUPIROCIN OINT 2% 22 GM TUBE NS SCH ×2 (11:23→21:10)
[2021-10-04] MEDS: IV NS 0.9% 1,000 ML IV PRN (11:42)
--- NOTE | 2021-10-04 12:40 | NUR ---
HD STARTED AT THIS TIME
[2021-10-04] MEDS: ALBUMIN 25% 25 GM in PREMIX 1 EA IV PRN (13:33)
--- NOTE | 2021-10-04 16:00 | NUR ---
HD FINISHED AT THIS TIME 500ML REMOVED
[2021-10-04] MEDS: LINEZOLID RTU BAG 600 MG in PREMIX 1 EA IV SCH ×2 (16:45→21:37)
--- NOTE | 2021-10-04 18:43 | NUR ---
END OF SHIFT NOTE: PT APPEARS MORE ALERT SINCE BEGINNING OF SHIFT. PT OPENS EYES AND MAKES EYE CONTACT BUT DOES NOT FOLLOW COMMANDS OR SAY ANYTHING. PT'S DAUGHTER AND SON VISITED, PT DID NOT TALK TO EITHER ONE OF THEM WHEN THEY WERE HERE. PT'S SON TOOK HOME ALL OF PATIENT PERSONAL BELONGINGS. BELONGINGS LIST UPDATED BY NELY HICKMAN AND SIGNED BY PT'S SON. PT HAD A TOTAL OF 15ML OF BLOODY URINE FROM VIRK. URINE SENT TO LAB FOR CULTURE. NO BM THIS SHIFT. PT CHECKED ON HOURLY AND PRN BY NURSING STAFF.
--- NOTE | 2021-10-04 19:00 | NUR ---
RN NOTE RECEIVED PATIENT IN BED, OPENS EYES TO SPEECH AND TOUCH, IN NO ACUTE DISTRESS AT THIS TIME. BREATHING UNLABORED, SATURATION AT 99% ON 2-3 LPM VIA NC, SR ON THE MONITOR, HR IS 84. NOTED ABNER PICC LINE, PATENT AND FLUSHING WELL, WITH NS INFUSING AT 75 ML/HR, AND RIJ HD CATH, NO S/S OF INFECTION. VIRK CATHETER CONNECTED TO URINE BAG IN PLACE, DRAINING TO A SMALL AMOUNT OF BRIGHT RED OUTPUT. NPO STATUS MAINTAINED. SAFETY MEASURES IMPLEMENTED. PATIENT BED ALARM IS ON. HEAD OF BED ELEVATED. BED IS LOCKED, IN LOWEST POSITION AND SIDE RAILS UP. CALL LIGHT WITHIN REACH OF THE PATIENT. WILL CONTINUE TO MONITOR AND REASSESS FOR ANY CHANGES.
--- NOTE | 2021-10-04 20:41 | NUR ---
RN NOTE TELEPHONE CALL TO PHARMACY TO VERIFY IF 21OO DOSE OF ZYVOX CAN BE GIVEN PREVIOUS ONE SCHEDULED AT 0900 WAS ADMINISTERED AT 1645 PER EMAR, POST HD. SPOKE WITH JARAD, STATED OK TO GIVE 2100 DOSE.
[2021-10-04] MEDS: CEFEPIME 2 GM in IV D5W 100 ML IV SCH (21:09)
[2021-10-05] VITALS (24 sets, daily range): BP systolic 91–160; BP diastolic 50–79
--- NOTE | 2021-10-05 01:21 | NUR ---
RN NOTE Telephone call from Augustine of [facility], stated still no bed available. Wanted to know current pt status, advised pt still in icu but now off pressors and on 2lpm via nc, but able to tolerate room air.
[2021-10-05] MEDS: IV NS 0.9% 1,000 ML IV PRN ×2 (02:51→16:39)
[2021-10-05 04:57] LABS: BASOPHILS % (AUTO) 0.7 % (0.0-2.0); EOSINOPHILS % (AUTO) 2.7 % (0.0-6.0); HEMATOCRIT 26 % (39-51); HEMOGLOBIN 8.4 g/dL (13.5-17.5); LYMPHOCYTES # (AUTO) 1.4 K/uL (0.8-4.8); MEAN CORPUSCULAR HGB CONC 33 g/dl (31.0-36.0); MEAN CORPUSCULAR VOLUME 89 fL (80-96); MONOCYTES # (AUTO) 0.6 K/uL (0.1-1.30); NEUTROPHILS # (AUTO) 4.8 K/uL (1.8-8.9); NEUTROPHILS % (AUTO) 68.6 % (43.0-81.0); PLATELET COUNT (AUTO) 204 K/uL (150-450); WHITE BLOOD COUNT (AUTO) 6.9 K/uL (4.3-11.0)
[2021-10-05 05:29] LABS: CARBON DIOXIDE 22 mmol/L (21-32); CHLORIDE 102 mmol/L (98-107); CREATININE 2.3 mg/dL (0.6-1.3); GLUCOSE 106 mg/dL (74-106); MAGNESIUM 1.6 mg/dL (1.8-2.4); PHOSPHORUS 2.6 mg/dL (2.5-4.9); POTASSIUM 3.6 mmol/L (3.5-5.1); SODIUM SERUM 134 mmol/L (136-145); UREA NITROGEN, BLOOD 16 mg/dL (7-18)
[2021-10-05] MEDS: PANTOPRAZOLE 40 MG TABLET.DR PO SCH (07:30)
--- NOTE | 2021-10-05 07:30 | NUR ---
OPENING NOTE: REPORT RECEIVED FROM HUMZA HICKMAN. PER REPORT NO CHANGES IN PATIENT STATUS OVERNIGHT, EXCEPT PT IS ON ROOM AIR NOW. PT AWAKE ALERT, DOES NOT FOLLOW COMMANDS OR TALK, ONLY MAKES SOUNDS. PT CHECKED ON HOURLY AND PRN BY NURSING STAFF.
[2021-10-05] MEDS: LEVOTHYROXINE SODIUM 75 MCG TABLET PO SCH (09:00)
[2021-10-05] MEDS: CITRIC ACID/SODIUM CITRATE (BICITRA)15 ML UDC PO SCH ×4 (09:00→21:00)
[2021-10-05] MEDS: MUPIROCIN OINT 2% 22 GM TUBE NS SCH ×2 (10:20→21:14)
[2021-10-05] MEDS: LINEZOLID RTU BAG 600 MG in PREMIX 1 EA IV SCH ×2 (10:20→21:39)
[2021-10-05] MEDS: Magnesium 1GM/D5W 100ML PREMIX 100 ML IV SCH ×2 (12:49→14:24)
--- NOTE | 2021-10-05 18:24 | NUR ---
END OF SHIFT NOTE: PT HAD A FAIRLY UNEVENTFUL SHIFT. PT HAS BEEN ON ROOM AIR ALL SHIFT SATTING 97-98%. PT WAKES EASILY, MAKES EYE CONTACT, DOES NOT FOLLOW COMMANDS, ONLY INCOMPREHENSIBLE NOISES, NO WORDS. NO HD TODAY. PT CHECKED ON HOURLY AND PRN BY NURSING STAFF.
[2021-10-05] MEDS: CEFEPIME 2 GM in IV D5W 100 ML IV SCH (21:11)
[2021-10-06] VITALS (24 sets, daily range): BP systolic 110–155; BP diastolic 53–85
[2021-10-06] MEDS: IV NS 0.9% 1,000 ML IV PRN ×2 (05:50→18:05)
--- NOTE | 2021-10-06 07:20 | NUR ---
REPORT RECEIVED FROM LELAND-RN, PT. ASLEEP COMFORTABLY, NO SSx OF ANY DISTRESS NOTED AT THIS TIME, ON ROOM AIR WITH O2Sat OF 99%; IVF INFUSING PER MD ORDER; PT. NPO STATUS; CALL LIGHT WITHIN REACH, WILL CONTINUE PT. MONITORING.
[2021-10-06] MEDS: PANTOPRAZOLE 40 MG TABLET.DR PO SCH (07:30)
[2021-10-06] MEDS: CITRIC ACID/SODIUM CITRATE (BICITRA)15 ML UDC PO SCH ×4 (08:22→21:00)
[2021-10-06] MEDS: LEVOTHYROXINE SODIUM 75 MCG TABLET PO SCH (08:22)
[2021-10-06] MEDS: LINEZOLID RTU BAG 600 MG in PREMIX 1 EA IV SCH ×2 (08:27→20:36)
[2021-10-06] MEDS: MUPIROCIN OINT 2% 22 GM TUBE NS SCH ×2 (08:29→20:39)
[2021-10-06 09:06] LABS: ABG BASE EXCESS -3.3 mmol/L; ABG OXYGEN SATURATION 67.5 % (92.0-98.5); ABG PCO2 48.7 mmHg (35.0-45.0); ABG PH 7.296 (7.350-7.450); ABG PO2 32.9 mmHg (75.0-100.0); COHb 0.5 % (0.5-1.5); MetHb 0.2 % (0.0-1.5); SITE, ABG Other; VENT MODE, BG room air
--- NOTE | 2021-10-06 19:02 | NUR ---
RN CLOSING NOTES PT. ASLEEP COMFORTABLY ON BED, NO SSx OF ANY DISTRESS NOTED; CALL LIGHT WITHIN REACH; ENDORSED TO NIGHT TESSIE FOR CONTINUITY OF CARE.
--- NOTE | 2021-10-06 19:58 | NUR ---
FEEDER WORKER POWER UNIT OPERATOR. RECEIVED THE PT REST IN BED. AWAKE, ALERT. FOLLOW SIMPLE COMMANDS. CARDIAC MONITORS SHOWING NSR. PT IS ON ROOM AIR. SAT IS 98%. NO ACUTE DISTRESS NOTED. IV RT UPPER ARM PICC LINE. IVF NS @ 75 ML/H. RT IJ HD CATH. HOB ELEVATED. WILL CONTINUE TO MONITOR VITALS.
[2021-10-06] MEDS: CEFEPIME 2 GM in IV D5W 100 ML IV SCH (20:36)
[2021-10-07] VITALS (34 sets, daily range): BP systolic 87–163; BP diastolic 45–89
[2021-10-07 04:13] LABS: BASOPHILS % (AUTO) 0.4 % (0.0-2.0); EOSINOPHILS % (AUTO) 3.4 % (0.0-6.0); HEMATOCRIT 28 % (39-51); HEMOGLOBIN 8.9 g/dL (13.5-17.5); LYMPHOCYTES # (AUTO) 1.5 K/uL (0.8-4.8); LYMPHOCYTES % (AUTO) 19.9 % (20.0-44.0); MEAN CORPUSCULAR HGB CONC 32 g/dl (31.0-36.0); MEAN CORPUSCULAR VOLUME 89 fL (80-96); MONOCYTES # (AUTO) 0.6 K/uL (0.1-1.30); MONOCYTES % (AUTO) 7.6 % (2.0-12.0); NEUTROPHILS # (AUTO) 5.4 K/uL (1.8-8.9); NEUTROPHILS % (AUTO) 68.7 % (43.0-81.0); PLATELET COUNT (AUTO) 190 K/uL (150-450); WHITE BLOOD COUNT (AUTO) 7.8 K/uL (4.3-11.0)
[2021-10-07 04:16] LABS: CALCIUM, SERUM 7.8 mg/dL (8.5-10.1); CARBON DIOXIDE 21 mmol/L (21-32); CHLORIDE 104 mmol/L (98-107); CREATININE 3.2 mg/dL (0.6-1.3); GLUCOSE 113 mg/dL (74-106); MAGNESIUM 1.7 mg/dL (1.8-2.4); PHOSPHORUS 2.6 mg/dL (2.5-4.9); POTASSIUM 3.5 mmol/L (3.5-5.1); SODIUM SERUM 135 mmol/L (136-145); UREA NITROGEN, BLOOD 18 mg/dL (7-18)
--- NOTE | 2021-10-07 04:52 | NUR ---
COMPTOMETRIST. AM CARE GIVEN. PT IS ROOM AIR. TOLERATED WELL. SAT 98%. NO ACUTE DISTRESS NOTED. CUSTOMER CONTACT SPECIALIST SHOWING NSR. IV RT UPPER ARM PICC LINE IVF NS @75 ML/H. HOB ELEVATED. FC PATENT.TURN AND REPOSITION Q2H. AFEBRILE. WILL CONTINUE TO MONITOR VITALS.
[2021-10-07] MEDS: IV NS 0.9% 1,000 ML IV PRN (06:07)
--- NOTE | 2021-10-07 08:00 | NUR ---
RN NOTES RECEIVED PATIENT IN THE BED AWAKE, SINGAPOREAN SPEAKER. PATIENT ISOLATION OF VRE OF URINE , AND MRSA OF NARES. SEEN DR CEVALLOS NEW ORDER IS CHEST X-RAY, AND HEMODIALYSIS AT THIS TIME . DUE MEDICATION ADMINISTERED, PATIENT NPO SWALLOW EVAL FOR ASPIRATION PRECAUTION. PATIENT HAS GENERALIZED EDEMA. REJ HD CATH INTACT. INFUSING NS @75 ML/HR, AND TKO ON ABNER PICC LINE INTACT. VIRK DRAINING SMALL BLOODY OUTPUT. KEEP HOB ELEVATED FOR ASPIRATION PRECAUTION. CALL LIGHT WITHIN TO REACH. WILL FOLLOW UP.
[2021-10-07] MEDS: PANTOPRAZOLE 40 MG TABLET.DR PO SCH (09:02)
[2021-10-07] MEDS: MUPIROCIN OINT 2% 22 GM TUBE NS SCH ×2 (09:02→20:58)
[2021-10-07] MEDS: CITRIC ACID/SODIUM CITRATE (BICITRA)15 ML UDC PO SCH ×4 (09:08→20:58)
[2021-10-07] MEDS: LINEZOLID RTU BAG 600 MG in PREMIX 1 EA IV SCH ×2 (09:08→20:56)
[2021-10-07] MEDS: LEVOTHYROXINE SODIUM 75 MCG TABLET PO SCH (09:08)
--- NOTE | 2021-10-07 09:18 | NUR ---
RN NOTES PATIENT GETTING HD AT THIS TIME. CHEST X-RAY DONE, WAITING FOR RESULT.
--- NOTE | 2021-10-07 12:00 | NUR ---
rn notes finished hemodialysis at this time output was 1.2 l, patient awake, vss, refused pain. assist eating lunch, tolerated lunch 20%, patient total care, assist turn and reposition q 2 hr.
--- NOTE | 2021-10-07 13:39 | NUR ---
RN NOTES CHEST X-RAY RESULT: Moderate - large right pleural effusion and consolidation are unchanged. No pneumothorax. Dr CEVALLOS AWARE OF, AND HOSPITALIST.
--- NOTE | 2021-10-07 18:00 | NUR ---
RN NOTES TRANSFERRED PATIENT TO THE [place] UNIT ROOM 120. PATIENT STABLE , DUE MEDICATION ADMINISTERED PM CARE DOME, ASSIST EATING. FAMILY NEXT TO THE BED ALSO BRIDGED FOOD FROM HOME. ASSIST TURN AND REPOSTION Q 2 HR. INFUSING NS@75ML/HR ON RIGHT MIDLINE INTACT. PATIENT HAS GENERALIZED EDEMA. ENDORSED ONCOMING NURSE SHELLEY.
[2021-10-07] MEDS: ACETAMINOPHEN 325 MG TABLET PO PRN (22:06)
[2021-10-08] VITALS: BP 104/39
[2021-10-08] MEDS: IV NS 0.9% 1,000 ML IV PRN ×2 (03:40→21:33)
[2021-10-08 04:00] VITALS: BP 128/64
--- NOTE | 2021-10-08 07:00 | NUR ---
RN NOTES PATIENT ASLEEP AT THIS TIME, AROUSES TO VERBAL STIMULI, A/X 2, AT ROOM AIR, BREATHING EVEN AND UNLABORED, NO SOB/ACUTE DISTRESS DURING THE NIGHT, NSR IN TELE MONITOR, RIGHT IJ AND ABNER MIDLINE IN PACE, PATENT AND INTACT, IV FLUIDS INFUSING AAS ORDERED, PT TOLERATED WELL, FC CONT WITH HEMATURIA, AFEBRILE DURING THE NIGHT, BED LOCKED AND IN LOWEST POSITION, ALL SAFETY PRECAUTIONS MAINTAIN, CALL LIGHT W/I REACH, BILATERAL 1/2 S/R OF BED X2 UP REPOSITION/OFFLOADING Q2HR, WILL ENDORSE CONTINUITY OF CARE TO ONCOMING NURSE.
--- NOTE | 2021-10-08 07:05 | NUR ---
RN NOTE RECEIVED PATIENT ON BED, OPENS EYES TO SPEECH AND TOUCH, BREATHING UNLABORED, ON RA, O2 SAT WNL, IV SITE CLEAN, DRY AND INTACT PATENT AND FLUSHING WELL, WITH NS INFUSING AT 75 ML/HR, VIRK CATHETER CONNECTED TO URINE BAG IN PLACE, DRAINING TO A SMALL AMOUNT OF BRIGHT RED OUTPUT. SAFETY MEASURES IMPLEMENTED. PATIENT BED ALARM IS ON. HEAD OF BED ELEVATED. BED IS LOCKED, IN LOWEST POSITION AND SIDE RAILS UP. CALL LIGHT WITHIN EASY REACH, CONTINUE TO MONITOR
[2021-10-08 07:46] LABS: CARBON DIOXIDE 24 mmol/L (21-32); CHLORIDE 105 mmol/L (98-107); GLUCOSE 109 mg/dL (74-106); MAGNESIUM 1.9 mg/dL (1.8-2.4); PHOSPHORUS 2.6 mg/dL (2.5-4.9); POTASSIUM 3.8 mmol/L (3.5-5.1); SODIUM SERUM 138 mmol/L (136-145); UREA NITROGEN, BLOOD 16 mg/dL (7-18)
[2021-10-08 08:00] VITALS: BP 129/57
[2021-10-08] MEDS: CITRIC ACID/SODIUM CITRATE (BICITRA)15 ML UDC PO SCH ×4 (08:36→21:17)
[2021-10-08] MEDS: PANTOPRAZOLE 40 MG TABLET.DR PO SCH (08:36)
[2021-10-08] MEDS: MUPIROCIN OINT 2% 22 GM TUBE NS SCH ×2 (08:37→21:26)
[2021-10-08] MEDS: LEVOTHYROXINE SODIUM 75 MCG TABLET PO SCH (08:37)
[2021-10-08] MEDS: LINEZOLID RTU BAG 600 MG in PREMIX 1 EA IV SCH (08:40)
[2021-10-08 09:47] LABS: BASOPHILS % (AUTO) 0.6 % (0.0-2.0); EOSINOPHILS % (AUTO) 3.1 % (0.0-6.0); HEMATOCRIT 30 % (39-51); HEMOGLOBIN 9.7 g/dL (13.5-17.5); LYMPHOCYTES # (AUTO) 1.6 K/uL (0.8-4.8); LYMPHOCYTES % (AUTO) 21.5 % (20.0-44.0); MEAN CORPUSCULAR HGB CONC 33 g/dl (31.0-36.0); MEAN CORPUSCULAR VOLUME 89 fL (80-96); MONOCYTES # (AUTO) 0.5 K/uL (0.1-1.30); MONOCYTES % (AUTO) 6.9 % (2.0-12.0); NEUTROPHILS # (AUTO) 5.2 K/uL (1.8-8.9); NEUTROPHILS % (AUTO) 67.9 % (43.0-81.0); PLATELET COUNT (AUTO) 161 K/uL (150-450); RED BLOOD CELL COUNT(AUTO) 3.33 MIL/uL (4.5-6.0); WHITE BLOOD COUNT (AUTO) 7.6 K/uL (4.3-11.0)
[2021-10-08 12:00] VITALS: BP 128/59
[2021-10-08 16:00] VITALS: BP 155/79
--- NOTE | 2021-10-08 18:53 | NUR ---
RN NOTES NO SIGNIFCANT CHANGES NOTED ON THIS SHIT , WILL ENDORSE TO SUPERVISOR DRY PASTE NURSE FOR CONTINUITY OF CARE .
[2021-10-08 20:00] VITALS: BP 159/80
--- NOTE | 2021-10-08 20:31 | NUR ---
RN NOTE PATIENT IN BED, ALERT AND ORIENTED X2. RESPONSIVE TO VERBAL AND TACTILE STIMULI. ON ROOM AIR, NO SOB NOTED. VIRK CATH PATENT AND INTACT, DRAINING VIA GRAVITY. ABNER MIDLINE INFUSING NS @ 75ML/HR. NO S/S OF INFILTRATION. BED LOCKED AND IN LOWEST POSITION. SAFETY MEASURES MAINTAINED. CALL LIGHT WITHIN REACH. WILL CONTINUE TO MONITOR.
[2021-10-08] MEDS: LINEZOLID 600 MG TABLET PO SCH (21:17)
[2021-10-09] VITALS (7 sets, daily range): BP systolic 114–157; BP diastolic 53–76
--- NOTE | 2021-10-09 06:51 | NUR ---
RN NOTE PATIENT RESTING IN BED. ON ROOM AIR, O2 SAT 97%. DUE MEDS GIVEN ORDERED. KEPT CLEAN AND DRY, TURNED AND REPOSITIONED. FOR RIGHT SIDED PLEURX INSERTION TODAY. WILL ENDORSE TO AM SHIFT.
[2021-10-09 07:00] LABS: CALCIUM, SERUM 8.1 mg/dL (8.5-10.1); CARBON DIOXIDE 23 mmol/L (21-32); CHLORIDE 103 mmol/L (98-107); CREATININE 3.3 mg/dL (0.6-1.3); GLUCOSE 101 mg/dL (74-106); MAGNESIUM 1.8 mg/dL (1.8-2.4); PHOSPHORUS 2.8 mg/dL (2.5-4.9); POTASSIUM 3.3 mmol/L (3.5-5.1); SODIUM SERUM 135 mmol/L (136-145); UREA NITROGEN, BLOOD 17 mg/dL (7-18)
--- NOTE | 2021-10-09 07:44 | NUR ---
RN OPENING NOTES PT IS RESTING IN BED A/O X2, NO S/S OF RESP DISTRESS OR C/O PAIN AT THIS TIME. IV ACCESS ON R ARM MIDLINE RUNNING NS AT 75ML/HR. ALL SAFETY MEASURES IN PLACE, BED IN LOWEST LOCKED POSITION, CALL LIGHT WITHIN REACH. SR UP X3. WILL CONTINUE TO MONITOR THROUGHOUT SHIFT.
[2021-10-09 07:47] LABS: BASOPHILS # (AUTO) 0.1 K/uL (0.0-0.2); BASOPHILS % (AUTO) 0.8 % (0.0-2.0); EOSINOPHILS % (AUTO) 3.4 % (0.0-6.0); HEMATOCRIT 27 % (39-51); HEMOGLOBIN 8.9 g/dL (13.5-17.5); LYMPHOCYTES # (AUTO) 1.7 K/uL (0.8-4.8); LYMPHOCYTES % (AUTO) 22.6 % (20.0-44.0); MEAN CORPUSCULAR HGB CONC 33 g/dl (31.0-36.0); MEAN CORPUSCULAR VOLUME 88 fL (80-96); MONOCYTES # (AUTO) 0.5 K/uL (0.1-1.30); MONOCYTES % (AUTO) 6.2 % (2.0-12.0); NEUTROPHILS # (AUTO) 5.1 K/uL (1.8-8.9); PLATELET COUNT (AUTO) 156 K/uL (150-450); RED BLOOD CELL COUNT(AUTO) 3.04 MIL/uL (4.5-6.0); WHITE BLOOD COUNT (AUTO) 7.6 K/uL (4.3-11.0)
[2021-10-09] MEDS: PANTOPRAZOLE 40 MG TABLET.DR PO SCH (07:56)
[2021-10-09] MEDS: LINEZOLID 600 MG TABLET PO SCH ×2 (09:00→21:14)
[2021-10-09] MEDS: LEVOTHYROXINE SODIUM 75 MCG TABLET PO SCH (09:00)
[2021-10-09] MEDS: CITRIC ACID/SODIUM CITRATE (BICITRA)15 ML UDC PO SCH ×4 (09:00→21:14)
[2021-10-09] MEDS: MUPIROCIN OINT 2% 22 GM TUBE NS SCH ×2 (09:39→21:14)
[2021-10-09] MEDS: POTASSIUM CL. PREMIX PERIPHER. 50 ML IV SCH ×3 (09:53→11:04)
[2021-10-09] MEDS ORDERED: LIDOCAINE 1% INJ 50 ML MDV IJ ONE (10:53)
[2021-10-09] MEDS ORDERED: POLYMYXIN B SULFATE 500,000 UNITS ONE (10:53)
--- NOTE | 2021-10-09 11:09 | NUR ---
RN NOTES PT LEFT UNIT FOR PLEURX INSERTION IN STABLE CONDITION. ALL CONSENTS SIGNED, CHECKLIST IN CHART.
[2021-10-09] MEDS ORDERED: FENTANYL PF 100MCG/2ML AMPUL ONE (11:27)
[2021-10-09] MEDS ORDERED: ANESTHESIA TRAY IN PYXIS 1 EA TRAY MC ONE (13:11)
[2021-10-09] MEDS: ALBUMIN 25% 25 GM in PREMIX 1 EA IV PRN (16:26)
--- NOTE | 2021-10-09 18:38 | NUR ---
RN CLOSING NOTE PATIENT IN BED, ALERT AND ORIENTED X2. RESPONSIVE TO VERBAL AND TACTILE STIMULI. ON ROOM AIR, NO SOB NOTED. VIRK CATH PATENT AND INTACT, DRAINING VIA GRAVITY. ABNER MIDLINE INFUSING NS @ 75ML/HR. NO S/S OF INFILTRATION. BED LOCKED AND IN LOWEST POSITION. SAFETY MEASURES MAINTAINED. CALL LIGHT WITHIN REACH. WILL ENDORSE TO SPORTS CARTOONIST NURSE FOR [place].
--- NOTE | 2021-10-09 19:35 | NUR ---
RN NOTES RECEIVED PATIENT AWAKE ON BED, A/OX2, SR ON TELE MONITOR HR-88, HEMATURIA WAS NOTED ON THE F/C, PER DAYSHIFT NURSE MD IS AWARE, DENIES PAIN, NO SOB, CALL LIGHT WITHIN REACH, SIDERAILSUPX2, WILL CONTINUE TO MONITOR
--- NOTE | 2021-10-09 19:35 | NUR ---
RN NOTES RECEIVED PATIENT ON BED,OBTUNDED, VENT DEPENDENT, ST ON TELE MONITOR HR-110, G-TUBE FEEDING RUNNING PT. TOLERATING FAIRLY, NOT IN DISTRESS, F/C DRAINING TEA COLORED URINE, SIDERAILSUPX2. WILL CONTINUE TO MONITOR Addendum: 10/09/21 at 2034 by MICHAEL VERDUZCO RN WRONG PATIENT
--- NOTE | 2021-10-09 22:35 | NUR ---
RN NOTES PATIENT ASKED FOR PAIN MEDS- TYLENOL 650MG PO GIVEN ORDERED
[2021-10-09] MEDS: ACETAMINOPHEN 325 MG TABLET PO PRN (23:59)
[2021-10-10] VITALS: BP 127/58
[2021-10-10 04:00] VITALS: BP 100/55
[2021-10-10] MEDS: IV NS 0.9% 1,000 ML IV PRN ×2 (04:16→17:29)
[2021-10-10 06:21] LABS: BASOPHILS % (AUTO) 0.4 % (0.0-2.0); EOSINOPHILS % (AUTO) 2.3 % (0.0-6.0); HEMATOCRIT 27 % (39-51); HEMOGLOBIN 8.8 g/dL (13.5-17.5); LYMPHOCYTES # (AUTO) 1.5 K/uL (0.8-4.8); LYMPHOCYTES % (AUTO) 19.9 % (20.0-44.0); MEAN CORPUSCULAR HGB CONC 33 g/dl (31.0-36.0); MEAN CORPUSCULAR VOLUME 89 fL (80-96); MONOCYTES # (AUTO) 0.5 K/uL (0.1-1.30); MONOCYTES % (AUTO) 6.1 % (2.0-12.0); NEUTROPHILS # (AUTO) 5.5 K/uL (1.8-8.9); NEUTROPHILS % (AUTO) 71.3 % (43.0-81.0); PLATELET COUNT (AUTO) 106 K/uL (150-450); RED BLOOD CELL COUNT(AUTO) 3.02 MIL/uL (4.5-6.0); WHITE BLOOD COUNT (AUTO) 7.6 K/uL (4.3-11.0)
--- NOTE | 2021-10-10 06:41 | NUR ---
RN NOTES SLEEPING BUT AROUSABLE, NOT IN DISTRESS, NO PAIN NOTED, MORNING CARE RENDERED, PT. NEEDS ATTENDED
[2021-10-10 07:12] LABS: CALCIUM, SERUM 7.8 mg/dL (8.5-10.1); CARBON DIOXIDE 21 mmol/L (21-32); CHLORIDE 105 mmol/L (98-107); CREATININE 2.8 mg/dL (0.6-1.3); GLUCOSE 89 mg/dL (74-106); POTASSIUM 3.9 mmol/L (3.5-5.1); SODIUM SERUM 135 mmol/L (136-145); UREA NITROGEN, BLOOD 14 mg/dL (7-18)
--- NOTE | 2021-10-10 07:30 | NUR ---
RN OPENING NOTE PATIENT IN BED, ALERT AND ORIENTED X2. RESPONSIVE TO VERBAL AND TACTILE STIMULI. ON ROOM AIR, NO SOB NOTED. VIRK CATH PATENT AND INTACT, DRAINING VIA GRAVITY. PT EXHIBITS HEMATURIA. ABNER MIDLINE INFUSING NS @ 75ML/HR. NO S/S OF INFILTRATION. BED LOCKED AND IN LOWEST POSITION. SAFETY MEASURES MAINTAINED. CALL LIGHT WITHIN REACH. WILL CONTINUE TO MONITOR.
[2021-10-10 08:00] VITALS: BP 136/55
[2021-10-10] MEDS: LINEZOLID 600 MG TABLET PO SCH ×2 (08:14→21:20)
[2021-10-10] MEDS: LEVOTHYROXINE SODIUM 75 MCG TABLET PO SCH (08:14)
[2021-10-10] MEDS: MUPIROCIN OINT 2% 22 GM TUBE NS SCH ×2 (08:14→21:20)
[2021-10-10] MEDS: CITRIC ACID/SODIUM CITRATE (BICITRA)15 ML UDC PO SCH ×4 (08:14→21:20)
[2021-10-10] MEDS: PANTOPRAZOLE 40 MG TABLET.DR PO SCH (08:14)
[2021-10-10] MEDS: ACETAMINOPHEN 325 MG TABLET PO PRN ×3 (08:28→23:43)
--- NOTE | 2021-10-10 10:48 | NUR ---
pleurx draining out put 1000ml of draining out put was notified and orders given will do every 3 days used all retail service technician
[2021-10-10 12:00] VITALS: BP 107/48
[2021-10-10 16:00] VITALS: BP 107/64
--- NOTE | 2021-10-10 18:41 | NUR ---
RN OPENING NOTE PT REMAINED STABLE THROUGHOUT SHIFT. PATIENT IN BED, ALERT AND ORIENTED X2. RESPONSIVE TO VERBAL AND TACTILE STIMULI. ON 3L NC TOLERATING WELL WITH NO SOB NOTED AND SPO2 OF 96%. VIRK CATH PATENT AND INTACT, DRAINING VIA GRAVITY. PT EXHIBITS HEMATURIA. PT HAS ABNER ML SL AND DARRICK MIDLINE INFUSING NS @ 75ML/HR INTACT AND PATENT. NO S/S OF INFILTRATION. PT ALSO HAS PLEURX CHEST TUBE BANDAGED INTACT AND PATENT. BED LOCKED AND IN LOWEST POSITION. SAFETY MEASURES MAINTAINED. CALL LIGHT WITHIN REACH. WILL ENDORSE TO EMISSION TECHNICIAN RN.
--- NOTE | 2021-10-10 19:30 | NUR ---
RN NOTE RECEIVED PATIENT IN BED, AO X 2-3, IN NO ACUTE DISTRESS AT THIS TIME, RESPIRATIONS UNLABORED, SATURATION AT 100% ON 3LPM VIA NC, SR ON THE MONITOR, HR IS 74. NOTED DARRICK AND ABNER MIDLINE, BOTH PATENT AND FLUSHING WELL, NO S/S OF INFECTION, WITH NS INFUSING AT 75 ML/HR. VIRK CATHETER CONNECTED TO URINE BAG IN PLACE, DRAINING TO A RED OUTPUT, PER ASAF HICKMAN MD IS AWARE AND WAS IRRIGATED. SAFETY MEASURES IMPLEMENTED. PATIENT BED ALARM IS ON. HEAD OF BED ELEVATED. BED IS LOCKED, IN LOWEST POSITION AND SIDE RAILS UP. CALL LIGHT WITHIN REACH OF THE PATIENT. WILL CONTINUE TO MONITOR AND REASSESS FOR ANY CHANGES.
[2021-10-10 20:00] VITALS: BP 154/76
[2021-10-11] VITALS: BP 123/59
[2021-10-11 04:00] VITALS: BP 139/62
[2021-10-11] MEDS: IV NS 0.9% 1,000 ML IV PRN ×2 (06:59→19:44)
[2021-10-11 07:28] LABS: CALCIUM, SERUM 7.9 mg/dL (8.5-10.1); CARBON DIOXIDE 20 mmol/L (21-32); CHLORIDE 105 mmol/L (98-107); CREATININE 3.2 mg/dL (0.6-1.3); GLUCOSE 77 mg/dL (74-106); POTASSIUM 3.9 mmol/L (3.5-5.1); SODIUM SERUM 137 mmol/L (136-145); UREA NITROGEN, BLOOD 16 mg/dL (7-18)
[2021-10-11] MEDS: PANTOPRAZOLE 40 MG TABLET.DR PO SCH ×2 (07:30→08:22)
--- NOTE | 2021-10-11 07:30 | NUR ---
RN OPENING NOTE PATIENT ENDORSED BY OUTGOING NURSE FOR CONTINUITY OF CARE. RECEIVED PATIENT IN BED, AO X 2-3, IN NO ACUTE DISTRESS AT THIS TIME, RESPIRATIONS UNLABORED, SATURATION AT 100% ON 3LPM VIA NC, SR ON THE MONITOR, HR IS 74. NOTED DARRICK AND ABNER MIDLINE, BOTH PATENT AND FLUSHING WELL, NO S/S OF INFECTION, WITH NS INFUSING AT 75 ML/HR. VIRK CATHETER CONNECTED TO URINE BAG IN PLACE, DRAINING TO A RED OUTPUT, PER ASAF HICKMAN MD IS AWARE AND WAS IRRIGATED. SAFETY MEASURES IMPLEMENTED. PATIENT BED ALARM IS ON. HEAD OF BED ELEVATED. BED IS LOCKED, IN LOWEST POSITION AND SIDE RAILS UP. CALL LIGHT WITHIN REACH OF THE PATIENT. WILL CONTINUE TO MONITOR AND REASSESS FOR ANY CHANGES.
[2021-10-11 07:54] LABS: BASOPHILS % (AUTO) 0.6 % (0.0-2.0); EOSINOPHILS % (AUTO) 2.7 % (0.0-6.0); HEMATOCRIT 26 % (39-51); HEMOGLOBIN 8.6 g/dL (13.5-17.5); LYMPHOCYTES # (AUTO) 1.8 K/uL (0.8-4.8); LYMPHOCYTES % (AUTO) 26.5 % (20.0-44.0); MEAN CORPUSCULAR HGB CONC 33 g/dl (31.0-36.0); MEAN CORPUSCULAR VOLUME 89 fL (80-96); MONOCYTES # (AUTO) 0.4 K/uL (0.1-1.30); MONOCYTES % (AUTO) 6.5 % (2.0-12.0); NEUTROPHILS # (AUTO) 4.3 K/uL (1.8-8.9); NEUTROPHILS % (AUTO) 63.7 % (43.0-81.0); PLATELET COUNT (AUTO) 100 K/uL (150-450); RED BLOOD CELL COUNT(AUTO) 2.97 MIL/uL (4.5-6.0); WHITE BLOOD COUNT (AUTO) 6.8 K/uL (4.3-11.0)
[2021-10-11 08:00] VITALS: BP 138/67
[2021-10-11] MEDS: LINEZOLID 600 MG TABLET PO SCH ×2 (08:22→21:59)
[2021-10-11] MEDS: LEVOTHYROXINE SODIUM 75 MCG TABLET PO SCH ×2 (08:22→09:00)
[2021-10-11] MEDS: CITRIC ACID/SODIUM CITRATE (BICITRA)15 ML UDC PO SCH ×4 (08:22→21:59)
--- NOTE | 2021-10-11 09:30 | NUR ---
Patient refused medication today. Patient had pain but did not want Tylenol 650 mg.
[2021-10-11] MEDS: ACETAMINOPHEN 325 MG TABLET PO PRN ×2 (09:37→09:54)
[2021-10-11] MEDS: MUPIROCIN OINT 2% 22 GM TUBE NS SCH ×2 (09:38→22:00)
--- NOTE | 2021-10-11 10:55 | NUR ---
@1055 irrigated 100 cc sterile water folly catheter as MD ordered.
[2021-10-11 12:00] VITALS: BP 114/55
--- NOTE | 2021-10-11 15:00 | NUR ---
@ 1500 patient dialysis's nurse reported that dialysis was cancel because patient blood pressure went down even after Albumin intake the blood pressure was still low. Dialysis's nurse called Dr. Jacob and Dr. Evangelista and made them aware.
[2021-10-11] MEDS: ALBUMIN 25% 25 GM in PREMIX 1 EA IV PRN (15:14)
[2021-10-11 16:00] VITALS: BP 142/67
[2021-10-11] MEDS ORDERED: HYDROCODONE/APAP 5/325MG TABLET PO ONE (18:00)
--- NOTE | 2021-10-11 19:00 | NUR ---
RN CLOSING NOTE PATIENT IN BED, ALERT AND ORIENTED X2. RESPONSIVE TO VERBAL AND TACTILE STIMULI. ON ROOM AIR, NO SOB NOTED. VIRK CATH PATENT AND INTACT, DRAINING VIA GRAVITY. ABNER MIDLINE INFUSING NS @ 75ML/HR. NO S/S OF INFILTRATION. BED LOCKED AND IN LOWEST POSITION. SAFETY MEASURES MAINTAINED. CALL LIGHT WITHIN REACH. WILL ENDORSE TO TERRAZZO MECHANIC HELPER NURSE FOR [place].
[2021-10-11 20:00] VITALS: BP 138/56
[2021-10-12] VITALS: BP 133/52
[2021-10-12 04:00] VITALS: BP 155/55
[2021-10-12] MEDS: IV NS 0.9% 1,000 ML IV PRN ×2 (05:56→19:48)
--- NOTE | 2021-10-12 07:25 | NUR ---
RN notes Alert and oriented with episodes of confusion and with eye contact. Verbally able to communicate needs. Resting comfortably in bed with no distress noted. On O2 at 2lpm via nasal cannula, tolerating well. No physical manifestation of pain or discomfort. Vital signs wnl. Morfin cath in place draining red color urine. Flushed with 200cc every 4hrs. No significant change of condition. Kept clean and dry. Will endorse to next shift for continuity of care.
--- NOTE | 2021-10-12 07:30 | NUR ---
food checkers and cashiers supervisor notes received patient awake in bed. patient is Alert and oriented times 2 with episodes of confusion and with eye contact. Verbally able to make needs known. no distress noted. On O2 at 2lpm via nasal cannula, tolerating well. No pain or discomfort noted. Morfin cath in place draining red color urine. Flushed with 200cc .patient has linda and lester midline . right intrajagullar hd catheter intact. bed locked in the lowest position. call lift and table in reach. will continue to monitor.
[2021-10-12 08:00] VITALS: BP 150/63
[2021-10-12] MEDS: CITRIC ACID/SODIUM CITRATE (BICITRA)15 ML UDC PO SCH ×4 (09:05→22:25)
[2021-10-12] MEDS: LINEZOLID 600 MG TABLET PO SCH (09:05)
[2021-10-12] MEDS: MUPIROCIN OINT 2% 22 GM TUBE NS SCH ×2 (09:09→22:26)
[2021-10-12 12:00] VITALS: BP 165/70
[2021-10-12 13:03] LABS: BASOPHILS % (AUTO) 0.6 % (0.0-2.0); EOSINOPHILS % (AUTO) 2.7 % (0.0-6.0); HEMATOCRIT 25 % (39-51); HEMOGLOBIN 7.9 g/dL (13.5-17.5); LYMPHOCYTES # (AUTO) 1.4 K/uL (0.8-4.8); LYMPHOCYTES % (AUTO) 21.2 % (20.0-44.0); MEAN CORPUSCULAR HGB CONC 32 g/dl (31.0-36.0); MEAN CORPUSCULAR VOLUME 90 fL (80-96); MONOCYTES # (AUTO) 0.5 K/uL (0.1-1.30); MONOCYTES % (AUTO) 8.4 % (2.0-12.0); NEUTROPHILS # (AUTO) 4.4 K/uL (1.8-8.9); NEUTROPHILS % (AUTO) 67.1 % (43.0-81.0); PLATELET COUNT (AUTO) 57 K/uL (150-450); RED BLOOD CELL COUNT(AUTO) 2.77 MIL/uL (4.5-6.0); WHITE BLOOD COUNT (AUTO) 6.5 K/uL (4.3-11.0)
[2021-10-12 16:00] VITALS: BP 146/68
--- NOTE | 2021-10-12 18:45 | NUR ---
maintenance helper utility engineer closing notes patient awake in bed. patient is Alert and oriented times 2 with episodes of confusion . Verbally able to make needs known. no distress noted. On O2 at 2lpm via nasal cannula, tolerating well. No pain or discomfort noted. Almendarez cath in place draining red color urine. Flushed almendarez catheter with 200cc every 4 hours.patient has linda and lester midline . right intrajagullar hd catheter intact. all due meds given as ordered. dialysis done today, 2000 ml output. bed locked in the lowest position. call light and table in reach. will endorse for amrik.
--- NOTE | 2021-10-12 18:48 | NUR ---
rn notes patient on tele monitor reading sr=78
[2021-10-12 20:00] VITALS: BP 160/67
[2021-10-13] VITALS: BP 137/69
[2021-10-13 04:00] VITALS: BP 132/71
--- NOTE | 2021-10-13 06:14 | NUR ---
RN notes Awake, in bed, watching TV. Alert and oriented with episodes of confusion and with eye contact. Verbally able to communicate needs. Resting comfortably in bed with no distress noted. On O2 at 2lpm via nasal cannula, tolerating well. Tylenol 650mg given x 1 for headache, with relief. Vital signs wnl. Morfin cath in place draining red color urine. Flushed with 200cc every 4hrs. No significant change of condition. Kept clean and dry. Will endorse to next shift for continuity of care.
[2021-10-13] MEDS: IV NS 0.9% 1,000 ML IV PRN (06:44)
--- NOTE | 2021-10-13 07:30 | NUR ---
SOFTWARE QUALITY AUTOMATION ENGINEER OPENING NOTES received patient awake in bed. patient is Alert and oriented times 2 with episodes of confusion . on tele monitor. Verbally able to make needs known. no distress noted. On O2 at 2lpm via nasal cannula, tolerating well. No pain or discomfort noted. Morfin cath in place draining red color urine. Flushed with 200cc .patient has linda and lester midline . right intrajagullar hd catheter intact. bed locked in the lowest position. call light and table in reach. will continue to monitor.
--- NOTE | 2021-10-13 07:30 | NUR ---
RN NOTES RECEIVED CALL FROM DEBBIE FROM [facility] FOR PATIENT'S TRANSFER. SHE WANTED TO TALK TO MD BEFORE PATIENT TRANSFER.
[2021-10-13 07:32] LABS: BASOPHILS # (AUTO) 0.1 K/uL (0.0-0.2); BASOPHILS % (AUTO) 1.1 % (0.0-2.0); EOSINOPHILS % (AUTO) 2.7 % (0.0-6.0); HEMATOCRIT 26 % (39-51); HEMOGLOBIN 8.4 g/dL (13.5-17.5); LYMPHOCYTES # (AUTO) 1.5 K/uL (0.8-4.8); LYMPHOCYTES % (AUTO) 24.7 % (20.0-44.0); MEAN CORPUSCULAR HGB CONC 32 g/dl (31.0-36.0); MEAN CORPUSCULAR VOLUME 90 fL (80-96); MONOCYTES # (AUTO) 0.6 K/uL (0.1-1.30); MONOCYTES % (AUTO) 9.1 % (2.0-12.0); NEUTROPHILS # (AUTO) 3.9 K/uL (1.8-8.9); NEUTROPHILS % (AUTO) 62.4 % (43.0-81.0); PLATELET COUNT (AUTO) 58 K/uL (150-450); WHITE BLOOD COUNT (AUTO) 6.2 K/uL (4.3-11.0)
[2021-10-13 07:42] LABS: CARBON DIOXIDE 24 mmol/L (21-32); CHLORIDE 107 mmol/L (98-107); CREATININE 2.8 mg/dL (0.6-1.3); GLUCOSE 93 mg/dL (74-106); POTASSIUM 3.6 mmol/L (3.5-5.1); SODIUM SERUM 139 mmol/L (136-145); UREA NITROGEN, BLOOD 14 mg/dL (7-18)
[2021-10-13] MEDS: PANTOPRAZOLE 40 MG TABLET.DR PO SCH (07:44)
[2021-10-13] MEDS: LEVOTHYROXINE SODIUM 75 MCG TABLET PO SCH (09:26)
[2021-10-13] MEDS: MUPIROCIN OINT 2% 22 GM TUBE NS SCH (09:27)
[2021-10-13] MEDS: CITRIC ACID/SODIUM CITRATE (BICITRA)15 ML UDC PO SCH ×2 (09:27→13:03)
[2021-10-13 10:24] VITALS: BP 158/87
--- NOTE | 2021-10-13 10:30 | NUR ---
RN VEENA NEWMAN FROM LAB CALLED AND REPORTED POSITIVE COVID FOR PATIENT.
--- NOTE | 2021-10-13 11:02 | NUR ---
telephone information clerk note per manager rn casefinancial services manager given to hannah grier patient will be transfer to [facility], rapid test fort covid collected, sent t lab
[2021-10-13 12:00] VITALS: BP 158/87
--- NOTE | 2021-10-13 12:10 | NUR ---
RN NOTES TOOK SECOND COVID SAMPLE TO THE LAB.
--- NOTE | 2021-10-13 14:30 | NUR ---
AUXILIARY EQUIPMENT OPERATOR NOTES DISCHARGE PATIENT IN STABLE CONDITION. NO PAIN NOTED. NO SOB NOTED. NO DISTRESS NOTED. REPORT WAS GIVEN TO SAMARA BY CHARGE NURSE ELIAS. 2 MT FROM CALL MED ARRIVED AT 1430. ALL THE BELONGINGS CHECKED. BELONGINGS WAS TAKEN BY FAMILY BEFORE. MEDICATIONS FROM PHARMACY GIVEN TO THE MT.ALL REPORTS GIVEN TO THE MT. VIRK CATHETER IN PLACE. MID LINE IN THE RIGHT UPPER ARM AND LEFT UPPER ARM KEPT IN PLACE FOR CONTINUITY OF THE CARE. ARM BAND REMOVED. RIJ CATHETER IN PLACE INTACT. PLEURAL TUBE DRAINAGE INTACT AND IN PLACE. EARLIER REMOVED 850 ML OF THE DRAINAGE FROM PLEURAL DRAINAGE TUBE. PLUERAL DRAINAGE BOTTLES GIVEN TO THE PATIENT TO TAKE. ALL NEEDS ATTENDED. PATIENT LEFT HOSPITAL AT 1505 IN STABLE CONDITION. MD AND CHARGE NURSE AWARE OF THE DISCHARGE.
--- NOTE | 2021-10-13 14:40 | NUR ---
RN NOTES PATIENT'S DAUGHTER BIANCA CALLED AT 1440 AND MADE SURE FATHER IS BEING TRANSFERRED. STATED AMBULANCE IS HERE AND HE WILL LEAVE IN 10 MIN.
--- NOTE | 2021-10-13 14:50 | NUR ---
RN NOTES CALLED ASSOCIATE ENTERTAINMENT EDITOR WILY AND ASKED THE PATIENT'S ROOM TRANSFER NUMBER. THE ROOM NUMBER WAS [id number] IN [facility].
== END 2021-10-13 15:18 | disposition short-term general hospital (02) | DRG 208 ==
LOC: ER 10:16 → TELE1 20:14 → ICU 10-02 09:55 → TELE1 10-07 15:41
PROVIDERS: ATTEND Family Medicine
PROC: 0W993ZZ Drainage of Right Pleural Cavity, Percutaneous Approach (ICD-10-PCS; principal; 2021-09-30)
PROC: 05HM33Z Insertion of Infusion Device into Right Internal Jugular Vein, Percutaneous Approach (ICD-10-PCS; 2021-10-02)
PROC: B543ZZA Ultrasonography of Right Jugular Veins, Guidance (ICD-10-PCS; 2021-10-02)
PROC: 5A1D70Z Performance of Urinary Filtration, Intermittent, Less than 6 Hours Per Day (ICD-10-PCS; 2021-10-02)
PROC: 5A1945Z Respiratory Ventilation, 24-96 Consecutive Hours (ICD-10-PCS; 2021-10-08)
PROC: 0W9930Z Drainage of Right Pleural Cavity with Drainage Device, Percutaneous Approach (ICD-10-PCS; 2021-10-09)
PROC: 05H933Z Insertion of Infusion Device into Right Brachial Vein, Percutaneous Approach (ICD-10-PCS; 2021-10-10)
PROC: 5A1935Z Respiratory Ventilation, Less than 24 Consecutive Hours (ICD-10-PCS; 2021-10-12)
DX: J15.9 Unspecified bacterial pneumonia (principal); N17.0 Acute kidney failure with tubular necrosis; G93.41 Metabolic encephalopathy; U07.1 COVID-19; J90 Pleural effusion, not elsewhere classified; E44.0 Moderate protein-calorie malnutrition; N39.0 Urinary tract infection, site not specified; R78.81 Bacteremia; E87.1 Hypo-osmolality and hyponatremia; N13.6 Pyonephrosis; J98.11 Atelectasis; E87.70 Fluid overload, unspecified; I25.10 Atherosclerotic heart disease of native coronary artery without angina pectoris; N18.9 Chronic kidney disease, unspecified; B95.2 Enterococcus as the cause of diseases classified elsewhere; I12.9 Hypertensive chronic kidney disease with stage 1 through stage 4 chronic kidney disease, or unspecified chronic kidney disease; E11.65 Type 2 diabetes mellitus with hyperglycemia; R31.0 Gross hematuria; Z85.51 Personal history of malignant neoplasm of bladder; Z87.440 Personal history of urinary (tract) infections; E86.1 Hypovolemia; Z98.890 Other specified postprocedural states; D64.9 Anemia, unspecified; M48.10 Ankylosing hyperostosis [Forestier], site unspecified; Z87.891 Personal history of nicotine dependence
CPT/HCPCS: 31720; 36410; 36415; 36600; 70450-TC; 71045-TC; 71250-TC; 76770-TC; 80048-TC; 80053-TC; 80076-TC; 80202-TC; 81001; 82570-TC; 82803-TC; 82962-TC; 83605-TC; 83615-TC; 83735-TC; 83880; 84100-TC; 84300-TC; 84439-TC; 84443-TC; 84484-TC; 85025-TC; 85610-TC; 85730-TC; 86706; 86709; 87040-TC; 87070-TC; 87081-TC; 87086-TC; 87186-TC; 87340; 89051-TC; 90935-TC; 92526; 92611-TC; 93307-TC; 94760-TC; 94762-TC; 94799-TC; 97112-TC; 97530-TC; A4216; A4217; C1750; C9803; G0378; J0690; J0692; J0696; J2020; J2405; J3010; J3370; J3475; J3480; J3490; J7030; J7040; J7050; J7060; P9047